=== PATIENT | male | born 1945 | race Caucasian/White ===

== ENCOUNTER 2020-11-12 07:21 | Outpatient (REF) | payer MEDICARE, SELFPAY ==
[2020-11-12 08:12] LABS: MANUAL DIFF FLAG NO
[2020-11-12 08:16] LABS: Basophils Percent Auto 0.4 % (0-2); Eosinophils Absolute Auto 0.2 X10*3/uL (0.0-0.4); Eosinophils Percent Auto 2.1 % (0-4); Hematocrit 49.8 % (42-52); Hemoglobin 17.3 g/dl (14.0-18.0); Imm Gran Abs Auto 0.04 X10*3/uL (0.00-0.03); Imm Gran Pct Auto 0.5 % (0.0-0.4); Lymphocytes Absolute Auto 1.4 X10*3/uL (1.2-4.9); Lymphocytes Percent Auto 18.3 % (20-40); Mean Corpuscular HGB Conc 34.7 g/dl (31.0-36.0); Mean Corpuscular Hemoglobin 31.1 pg (27.0-33.0); Mean Corpuscular Volume 89.6 fL (80-98); Mean Platelet Volume 9.3 fL (9.4-12.4); Monocytes Absolute Auto 0.5 X10*3/uL (0.1-1.2); Monocytes Percent Auto 6.6 % (2-11); Neutrophils Absolute Auto 5.6 X10*3/uL (2.0-8.3); Neutrophils Percent Auto 72.1 % (45-73); Platelet Count 405 X10*3/uL (160-400); Red Blood Count 5.56 X10*6/uL (4.60-5.80); Red Cell Distribution Width 12.9 % (11.0-16.0); White Blood Count 7.7 X10*3/uL (4.8-10.8)
[2020-11-12 08:31] LABS: Alanine Aminotransferase 57 U/L (0-40); Albumin Level 3.7 g/dL (3.5-5.0); Alkaline Phosphatase 51 U/L (39-117); Anion Gap 13 (12-20); Aspartate Amino Transferase 29 U/L (5-37); Bilirubin Total 1.7 mg/dL (0.0-1.0); Blood Urea Nitrogen 22 mg/dL (9-16); Calcium 9.2 mg/dL (8.4-10.2); Carbon Dioxide 29 mmol/L (22-29); Chloride 104 mmol/L (96-108); Cholesterol 168 mg/dL; Estimated Glomerular Filt Rate > 60; Glucose Fasting 102 mg/dL (60-99); HDL Cholesterol 46 mg/dL; LDL Cholesterol Calculated 107 mg/dl; Potassium 4.2 mmol/L (3.3-5.1); Sodium 142 mmol/L (135-145); Total Protein 5.6 g/dL (6.5-8.0); Triglycerides 76 mg/dL
== END 2020-11-12 07:22 | disposition home or self-care (01) ==
LOC: HO.LAB 07:21
PROVIDERS: PCP Internal Medicine; Visit Provider Internal Medicine
DX: Z00.00 Encounter for general adult medical examination without abnormal findings (principal); E11.9 Type 2 diabetes mellitus without complications
CPT/HCPCS: 36415; 80053; 80061; 85025

== ENCOUNTER → 2020-11-19 09:18 | Outpatient (REF) | payer MEDICARE, SELFPAY ==
--- NOTE | ~2020-11-19 | XR_ITS ---
EXAMINATION: XR CHEST CLINICAL INFORMATION: Essential primary hypertension COMPARISON: Previous chest x-ray March 2008 TECHNIQUE: 2 views of the chest were obtained. FINDINGS: The cardiac and mediastinal contours are normal. There is retrosternal scarring or subsegmental atelectasis seen on the lateral view. The lungs are otherwise clear. There is no pleural effusion or pneumothorax. There are old right posterior rib fractures. Bony structures are otherwise unremarkable. XR/XR chest 2V IMPRESSION: Retrosternal scarring or subsegmental atelectasis. Otherwise unremarkable exam.
--- NOTE | 2020-11-19 09:30 | ECG_ITS ---
Test Reason : SOB Blood Pressure : / mmHG Vent. Rate : 055 BPM Atrial Rate : 055 BPM P-R Int : 168 ms QRS Dur : 082 ms QT Int : 424 ms P-R-T Axes : 064 054 051 degrees QTc Int : 405 ms Sinus bradycardia with Premature atrial complexes in a pattern of bigeminy Otherwise normal ECG When compared with ECG of 26-AUG-2017 15:02, ST elevation now present in Inferior leads Referred By: Moo Alcazar Electronically Signed By:RANDY RUSH MD
== END ==
LOC: HO.CARD 09:18
PROVIDERS: PCP Internal Medicine; Visit Provider Internal Medicine
DX: Z13.9 Encounter for screening, unspecified (principal); I10 Essential (primary) hypertension
CPT/HCPCS: 71046; 93005

== ENCOUNTER 2021-10-26 08:34 | Outpatient (REF) | payer MEDICARE, SELFPAY ==
[2021-10-26 09:04] LABS: MANUAL DIFF FLAG NO
[2021-10-26 09:29] LABS: Basophils Percent Auto 0.5 % (0-2); Eosinophils Absolute Auto 0.1 X10*3/uL (0.0-0.4); Eosinophils Percent Auto 1.7 % (0-4); Hematocrit 47.9 % (42.0-52.0); Hemoglobin 16.8 g/dl (14.0-18.0); Imm Gran Abs Auto 0.01 X10*3/uL (0.00-0.03); Imm Gran Pct Auto 0.2 % (0.0-0.4); Lymphocytes Absolute Auto 1.4 X10*3/uL (1.2-4.9); Lymphocytes Percent Auto 21.7 % (20-40); Mean Corpuscular HGB Conc 35.1 g/dl (31.0-36.0); Mean Corpuscular Hemoglobin 31.6 pg (27.0-33.0); Mean Platelet Volume 9.2 fL (9.4-12.4); Monocytes Absolute Auto 0.5 X10*3/uL (0.1-1.2); Monocytes Percent Auto 7.3 % (2-11); Neutrophils Absolute Auto 4.4 x10*3/uL (2.0-8.3); Neutrophils Percent Auto 68.6 % (45-73); Platelet Count 336 X10*3/uL (160-400); Red Blood Count 5.32 X10*6/uL (4.60-5.80); Red Cell Distribution Width 13.1 % (11.0-16.0); White Blood Count 6.5 X10*3/uL (4.8-10.8)
[2021-10-26 09:53] LABS: Alanine Aminotransferase 45 U/L (0-40); Albumin Level 3.8 g/dL (3.5-5.0); Alkaline Phosphatase 47 U/L (39-117); Anion Gap 10 (12-20); Aspartate Amino Transferase 23 U/L (5-37); Bilirubin Total 1.9 mg/dL (0.0-1.0); Blood Urea Nitrogen 19 mg/dL (9-16); Calcium 9.5 mg/dL (8.4-10.2); Carbon Dioxide 27 mmol/L (22-29); Chloride 109 mmol/L (96-108); Cholesterol 150 mg/dL; Estimated Glomerular Filt Rate > 60; Glucose Fasting 99 mg/dL (60-99); HDL Cholesterol 41 mg/dL; LDL Cholesterol Calculated 96 mg/dl; Potassium 4.7 mmol/L (3.3-5.1); Sodium 141 mmol/L (135-145); Total Protein 5.7 g/dL (6.5-8.0); Triglycerides 65 mg/dL
[2021-10-26 10:13] LABS: Prostate Specific Antigen Scr 2.23 ng/mL (<0.05-4.0); Thyroid Stimulating Hormone 1.58 uIU/mL (0.32-4.0)
== END 2021-10-26 08:35 | disposition home or self-care (01) ==
LOC: HO.LAB 08:34
PROVIDERS: PCP Internal Medicine; Visit Provider Internal Medicine
DX: Z00.00 Encounter for general adult medical examination without abnormal findings (principal); Z12.5 Encounter for screening for malignant neoplasm of prostate
CPT/HCPCS: 36415; 80053; 80061; 84153; 84443; 85025

== ENCOUNTER 2022-08-02 08:56 | Outpatient (REF) | payer MEDICARE, SELFPAY ==
[2022-08-02 09:12] LABS: MANUAL DIFF FLAG NO
[2022-08-02 09:24] LABS: Basophils Percent Auto 0.5 % (0-2); Eosinophils Absolute Auto 0.2 X10*3/uL (0.0-0.4); Eosinophils Percent Auto 1.8 % (0-4); Hematocrit 50.1 % (42.0-52.0); Hemoglobin 17.3 g/dl (14.0-18.0); Imm Gran Abs Auto 0.03 X10*3/uL (0.00-0.03); Imm Gran Pct Auto 0.4 % (0.0-0.4); Lymphocytes Absolute Auto 1.5 X10*3/uL (1.2-4.9); Lymphocytes Percent Auto 18.1 % (20-40); Mean Corpuscular HGB Conc 34.5 g/dl (31.0-36.0); Mean Corpuscular Hemoglobin 31.2 pg (27.0-33.0); Mean Corpuscular Volume 90.4 fL (80.0-98.0); Mean Platelet Volume 8.9 fL (9.4-12.4); Monocytes Absolute Auto 0.6 X10*3/uL (0.1-1.2); Monocytes Percent Auto 7.1 % (2-11); Neutrophils Absolute Auto 5.9 x10*3/uL (2.0-8.3); Neutrophils Percent Auto 72.1 % (45-73); Platelet Count 374 X10*3/uL (160-400); Red Blood Count 5.54 X10*6/uL (4.60-5.80); Red Cell Distribution Width 12.7 % (11.0-16.0); White Blood Count 8.2 X10*3/uL (4.8-10.8)
[2022-08-02 09:51] LABS: Alanine Aminotransferase 43 U/L (0-40); Albumin Level 3.5 g/dL (3.5-5.0); Alkaline Phosphatase 50 U/L (39-117); Anion Gap 9 (12-20); Aspartate Amino Transferase 24 U/L (5-37); Bilirubin Total 1.5 mg/dL (0.0-1.0); Blood Urea Nitrogen 18 mg/dL (9-16); Calcium 8.7 mg/dL (8.4-10.2); Carbon Dioxide 30 mmol/L (22-29); Chloride 105 mmol/L (96-108); Cholesterol 152 mg/dL; Estimated Glomerular Filt Rate > 60; Glucose Fasting 100 mg/dL (60-99); HDL Cholesterol 40 mg/dL; LDL Cholesterol Calculated 99 mg/dl; Potassium 4.1 mmol/L (3.3-5.1); Sodium 140 mmol/L (135-145); Total Protein 5.3 g/dL (6.5-8.0); Triglycerides 67 mg/dL
== END 2022-08-02 08:57 | disposition home or self-care (01) ==
LOC: HO.LAB 08:56
PROVIDERS: Visit Provider Internal Medicine
DX: Z13.0 Encounter for screening for diseases of the blood and blood-forming organs and certain disorders involving the immune mechanism (principal); E78.5 Hyperlipidemia, unspecified; I10 Essential (primary) hypertension
CPT/HCPCS: 36415; 80053; 80061; 85025

== ENCOUNTER 2022-10-27 10:02 | Day surgery (SDC) | payer MEDICARE, SELFPAY ==
[2022-10-27 10:22] VITALS: BP 158/62; PULSE 61; RESP 18; TEMP 36.6; O2SAT 98; BMI 26.5
--- NOTE | 2022-10-27 11:46 | HO.ANESPROP2 ---
HPI - Anesthesia Eval Consult details Narrative: epigastric pain PMFSH Active Problems Active Problems: All Active Problems (Updated 01/11/22 @ 14:58 by Moo Alcazar MD) Gout (Acute) Physical exam (Acute) Hypertension (Acute) Past Medical History Medical History (Updated 01/11/22 @ 14:58 by Moo Alcazar MD) Hypertension Family History Family History Father Colon cancer Mother Stroke Family history of problems with anesthesia: No Surgical History Surgical History H/O rectal polypectomy History of cataract surgery History of removal of cyst History of Problems with Anesthesia: No Social History Social History Housing: House Alcohol intake: never Patient Tobacco Use Status: Former Tobacco user Quit Date: 2002 e-Cigarette/Vaping Use: Never Used Second Hand Smoke Exposure: No Use of substances other than those prescribed or required for medical reasons: No Are you DNR?: No Advance Directives: No Advance Directives Information Provided: Yes service: No Current occupational status: retired Cognitive needs: No Hearing needs: No Vision needs: Yes Meds Allergies Allergy/AdvReac Type Severity Reaction Status Date / Time No Known Allergies Allergy Verified 04/12/22 08:32 Home Medications Medication Instructions Recorded Confirmed Last Taken Type dorzolamide 22.3 mg-timolol 6.8 1 drp ophthalmic (eye) BID 08/19/20 08/09/22 Unknown History mg/mL eye drops Exam Exam Date and Time: October 27, 2022 1146 Height,Weight and Vital Signs: Height 5 ft 10 in Weight 83.915 kg Last Vital Signs Temp 97.9 F 10/27/22 10:22 Pulse 61 10/27/22 10:22 Resp 18 10/27/22 10:22 BP 158/62 H 10/27/22 10:22 Pulse Ox 98 10/27/22 10:22 O2 Del Method Room Air 10/27/22 10:22 Airway Mallampati Class: II TM Dist: >3cm Neck ROM: Full Heart: rr Lungs: cta Assessment and Plan Assessment Anesthesia Assessment: Anesthesia Plan Discussed and Chart Reviewed Final Anesthetic Review Family History of Problems with Anesthesia: No History of Problems with Anesthesia: No NPO: Yes ASA Class: II Final Preanesthetic Review: No Changes in Pt Med Stat, Meds/Allgs Chart Reviewed, Consent Obtained/Reviewed and Anes Risks/Benef Reviewed Patient Risk: Low Procedure Risk: Low Anesthetic Plan Anesthetic Plan: MAC: Disposition: Standard PACU
[2022-10-27 12:36] VITALS: BP 98/53; PULSE 67; RESP 16; TEMP 37.1; O2SAT 95
--- NOTE | 2022-10-27 12:39 | PM.OP ---
Brief Operative Note Date of Service: 10/27/22 Pre-op diagnosis: Abdominal pain, weight loss. Post-op diagnosis: other (Hiatal hernia, GERD) Procedure: EGD with biopsies Surgeon: Luciano Munroe Anesthesia: MAC Was an Still Operator Batch Or Continuous used for this Procedure?: No Estimated blood loss (mL): 2.0 Pathology: other (A. Descending duodenum B. Gastric antrum C. EG Junction at 38cm) Condition: stable Disposition: PACU
[2022-10-27 12:51] VITALS: BP 97/55; PULSE 68; RESP 17; O2SAT 96
[2022-10-27 13:06] VITALS: BP 117/69; PULSE 68; RESP 18; TEMP 37.1; O2SAT 97
--- NOTE | 2022-10-27 13:07 | P.BOP_ITS ---
Brief Operative Note Date of Service: 10/27/22 Pre-op diagnosis: Abdominal pain Post-op diagnosis: other (Hiatal hernia, GERD) Procedure: EGD with biopsies Surgeon: Luciano Munroe Anesthesia: MAC Was an Aoc Director Combat Plans Officer used for this Procedure?: No Estimated blood loss (mL): 2.0 Pathology: other (A. Descending duodenum B. Gastric antrum C. EG Junction at 38cm) Condition: stable Disposition: PACU
[2022-10-27 13:21] VITALS: BP 107/77; PULSE 61; RESP 16; TEMP 37.1; O2SAT 97
--- NOTE | 2022-10-27 23:45 | OP_ITS ---
DATE OF SERVICE: 10/27/2022 SURGEON: Luciano Munroe MD INDICATIONS: The patient presents for evaluation of upper abdominal discomfort, nausea, bloating, and weight loss. Full consent has been obtained from his for this, including risks of bleeding and perforation. PREOPERATIVE DIAGNOSIS: POSTOPERATIVE DIAGNOSIS: PROCEDURE PERFORMED: Esophagogastroduodenoscopy with biopsies. ESTIMATED BLOOD LOSS: COMPLICATIONS: ANESTHESIA: Monitored anesthesia care. ASSISTANTS: SPECIMENS: PREOPERATIVE DIAGNOSES: Upper abdominal discomfort, nausea, bloating, and weight loss. POSTOPERATIVE DIAGNOSES: Upper abdominal discomfort, nausea, bloating, weight loss, hiatal hernia, reflux, rule out celiac disease, rule out Helicobacter pylori. DESCRIPTION OF PROCEDURE: The patient was placed in the left lateral decubitus position. The Olympus video gastroscope was passed in the posterior oropharynx and upper esophagus under direct vision. The scope was passed slowly to the distal esophagus. The gastroesophageal junction appeared at 38 cm. There was some slight irregularity consistent with reflux but no evidence of esophagitis nor any definitive evidence of Piedra's mucosa. There was a small hiatal hernia. Scope was advanced to the pylorus and the duodenum was cannulated to descending portion. The duodenum including the bulb appeared normal without mass or ulceration. Biopsies were obtained from the second and third portions of the duodenum. The scope was then withdrawn back in the stomach. The gastric antrum and body appeared normal with good peristalsis. Scope was retroflexed visualizing the proximal stomach carefully, which appeared normal, without any sign of mass or ulceration. Scope was straightened. Biopsies were obtained from the gastric antrum. The scope was withdrawn back into the esophagus. Biopsies were obtained at the EG junction at 38 cm. Proximal to this, the esophageal mucosa appeared normal. Scope was withdrawn from the patient. He tolerated the procedure well and was returned to the recovery area in stable condition. IMPRESSION: 1. Hiatal hernia, gastroesophageal reflux. 2. Rule out celiac disease. 3. Rule out Helicobacter pylori. PLAN: The results of the biopsies will be checked. I do not think these findings would account for all these symptoms. He has been using Pepcid and I shall switch this to omeprazole 40 mg daily to see if that gives him any symptomatic relief. He is going to be having an ultrasound of the abdomen soon to rule out symptomatic gallstones. We shall make further plans based on all these results. He may need a CT scan of the abdomen at some point as well. MD ARIS Oconnell/ABEL / [phone] MTDD
== END 2022-10-27 14:08 | disposition home or self-care (01) ==
PROVIDERS: PCP Internal Medicine; Visit Provider Internal Medicine
PROC: 0DJ08ZZ Inspection of Upper Intestinal Tract, Via Natural or Artificial Opening Endoscopic (ICD-10-PCS; CPT 43235; principal; 2022-10-27 11:20)
DX: R10.13 Epigastric pain (principal); K29.80 Duodenitis without bleeding; R63.4 Abnormal weight loss; Z68.26 Body mass index [BMI] 26.0-26.9, adult; R11.0 Nausea; K21.9 Gastro-esophageal reflux disease without esophagitis; K44.9 Diaphragmatic hernia without obstruction or gangrene; I10 Essential (primary) hypertension; M10.9 Gout, unspecified; H40.9 Unspecified glaucoma; Z79.899 Other long term (current) drug therapy; Z87.891 Personal history of nicotine dependence
CPT/HCPCS: 43239; 88305; 88342

== ENCOUNTER 2022-11-12 08:00 | Outpatient (REF) | payer MEDICARE, SELFPAY ==
--- NOTE | ~2022-11-12 | US_ITS ---
EXAMINATION: US ABDOMEN COMPLETE CLINICAL INFORMATION: Epigastric pain. Weight loss. COMPARISON: CT abdomen and pelvis 07/12/2008. TECHNIQUE: Real-time imaging of the abdominal viscera. FINDINGS: PANCREAS: Portions of the pancreas are obscured by bowel gas limiting evaluation. Pancreatic duct is minimally dilated measuring 4 mm. ABDOMINAL AORTA: The proximal, mid, and distal segments are normal in caliber. INFERIOR VENA CAVA: Visualized portions are normal. LIVER: Liver is enlarged measuring 18.2 cm in span. The liver contour is normal. There is diffuse increased liver parenchymal echogenicity, consistent with infiltrative hepatocellular disease. Benign-appearing renal cysts measuring up to 1.7 cm. There is no intrahepatic biliary duct dilatation seen. GALLBLADDER: The gallbladder is physiologically distended. Cholelithiasis. Negative sonographic Saucedo sign.. No evidence of gallbladder wall thickening or pericholecystic fluid. COMMON BILE DUCT: Normal in caliber measuring 0.4 cm in diameter. RIGHT KIDNEY: Normal. No hydronephrosis. No renal calculi or focal parenchymal lesions. The kidney measures 11.0 cm in maximum dimension. LEFT KIDNEY: Normal. No hydronephrosis. No renal calculi or focal parenchymal lesions. The kidney measures 11.4 cm in maximum dimension. SPLEEN: Normal. The spleen measures 12.6 cm in maximum dimension. FREE FLUID: None. US/US abdomen complete IMPRESSION: 1. Portions of the pancreas are obscured by bowel gas limiting evaluation. Pancreatic duct is minimally dilated measuring 4 mm. Recommend further evaluation with contrast enhanced MR/MRCP. 2. Cholelithiasis without evidence of acute cholecystitis. 3. Hepatomegaly. Increased hepatic echogenicity which can be seen in the setting of underlying liver disease.
== END 2022-11-12 08:01 | disposition home or self-care (01) ==
LOC: HO.US 08:00
PROVIDERS: PCP Internal Medicine; Visit Provider Internal Medicine
DX: R10.13 Epigastric pain (principal); R63.4 Abnormal weight loss
CPT/HCPCS: 76700

== ENCOUNTER 2022-12-16 08:16 | Outpatient (REF) | payer MEDICARE, SELFPAY ==
[2022-12-16 10:04] LABS: Alanine Aminotransferase 61 U/L (0-40); Albumin Level 3.6 g/dL (3.5-5.0); Alkaline Phosphatase 54 U/L (39-117); Amylase 66 U/L (28-100); Aspartate Amino Transferase 33 U/L (5-37); Bilirubin Direct 0.5 mg/dL (0.0-0.5); Bilirubin Total 1.9 mg/dL (0.0-1.0); Blood Urea Nitrogen 25 mg/dL (9-16); Estimated Glomerular Filt Rate > 60; Lipase 44 U/L (8-78); Total Protein 5.5 g/dL (6.5-8.0)
[2022-12-18 12:39] LABS: Carbohydrate Antigen 19-9 13 U/mL (<34)
== END 2022-12-16 08:17 | disposition home or self-care (01) ==
LOC: HO.LAB 08:16
PROVIDERS: PCP Internal Medicine; Visit Provider Internal Medicine
DX: Q45.3 Other congenital malformations of pancreas and pancreatic duct (principal); K80.20 Calculus of gallbladder without cholecystitis without obstruction; R93.5 Abnormal findings on diagnostic imaging of other abdominal regions, including retroperitoneum
CPT/HCPCS: 36415; 80076; 82150; 82565; 83690; 84520; 86301

== ENCOUNTER 2022-12-22 08:09 | Outpatient (REF) | payer MEDICARE, SELFPAY ==
--- NOTE | ~2022-12-22 | MR_ITS ---
EXAMINATION: MR ABDOMEN WITHOUT AND WITH CONTRAST CLINICAL INFORMATION: Abnormal pancreatic duct. Gallstones. COMPARISON: None available. TECHNIQUE: MR abdomen was performed without and with use of 9 mL intravenous Gadavist gadolinium contrast. Postcontrast images are performed in multiphase dynamic sequences. Imaging was performed in 3 planes. MRCP sequences were also performed. FINDINGS: LUNG BASES: The visualized lung bases are unremarkable. LIVER, GALLBLADDER, AND BILIARY TREE: There are 3 liver cysts, largest measuring 1 cm. No other focal liver lesion. There is fatty infiltration of the liver. The liver is normal in contour. There is a gallstone in the gallbladder. The gallbladder is otherwise normal. Intrahepatic extrahepatic bile ducts are normal in caliber. The common bile duct measures 3 mm. PANCREAS: There is a 5 mm cyst in the head of the pancreas axial image 15 series 5. This abuts the main pancreatic duct. This likely accounts for finding seen on ultrasound. There is a probable small 2 to 3 mm cyst adjacent to the head of the pancreas axial image 13 series 5 as well. Cysts appear to represent simple cysts and demonstrate no wall thickening solid component or evidence of enhancement. There is an 8 mm cyst in the uncinate process of the head of the pancreas axial image 22 series 9. This may communicate with the pancreatic duct. This is slightly irregular in shape. This may be multiloculated with septal enhancement. No solid component seen. Pancreas is otherwise normal. The main pancreatic duct does not appear dilated. SPLEEN: Normal. ADRENAL GLANDS: Normal. KIDNEYS AND URETERS: The kidneys are normal in size, shape, and enhance symmetrically. No hydronephrosis. No perinephric stranding. Small bilateral peripelvic cysts. No imaging follow-up recommended. GASTROINTESTINAL TRACT: Diverticulosis of the colon. Question wall thickening of the proximal small bowel in the left upper quadrant. No bowel obstruction. No ascites or fluid collection. ABDOMINAL WALL: No significant hernia is appreciated. LYMPH NODES: No lymphadenopathy. VASCULAR: Unremarkable. OSSEOUS STRUCTURES: Marrow signal normal. Degenerative disc disease MR/MR abdomen wo/w con IMPRESSION: Several cysts in the pancreas. Largest cyst measures 8 mm in the uncinate process of the head of the pancreas, appears complex and may communicate with the main pancreatic duct. The remainder of the cysts represent simple cysts. Cystic pancreatic neoplasm cannot be excluded including sidebranch IPMN. Follow-up MR of the pancreas with MRCP in one year recommended. Fatty liver. Multiple liver cysts. Diverticulosis of the colon. Question mild wall thickening of the proximal small bowel in the left upper quadrant.
== END 2022-12-22 08:10 | disposition home or self-care (01) ==
LOC: HO.MRI 08:09
PROVIDERS: PCP Internal Medicine; Visit Provider Internal Medicine
DX: Q45.3 Other congenital malformations of pancreas and pancreatic duct (principal); K80.20 Calculus of gallbladder without cholecystitis without obstruction; R93.5 Abnormal findings on diagnostic imaging of other abdominal regions, including retroperitoneum
CPT/HCPCS: 74183; A9585

== ENCOUNTER → 2022-12-29 09:42 | Outpatient (BNVA) | payer MEDICARE, SELFPAY | PROVIDERS: PCP Internal Medicine; Referring Provider Internal Medicine; Visit Provider Surgery | DX: K80.20 Calculus of gallbladder without cholecystitis without obstruction (principal) | CPT/HCPCS: 99202 ==

== ENCOUNTER 2023-01-27 09:29 | Day surgery (SDC) | payer MEDICARE, SELFPAY ==
[2023-01-24 09:36] VITALS: BMI 27.2
--- NOTE | 2023-01-26 14:30 | MHC.SHP ---
Pre-Procedural Eval Section A Date of Service: 01/26/23 The patient is an INPATIENT: No Changes since office visit: No Cold of Flu in the past 2 weeks, No New Medical Problems, No Changes in Medication and No Patient answered all questions The History & Physical has been completed within 30 days and I have reviewed it.: Yes Section B Chief Complaint: Calculus of gallbladder without cholecystitis with Allergies: Allergies Allergy/AdvReac Type Severity Reaction Status Date / Time No Known Allergies Allergy Verified 12/29/22 09:51 Plan I have reviewed the history and physical and performed a pertinent physical examination on my patient. No changes have occurred unless specified. Time Spent With Patient Time: Total time managing care of this patient today ____ minutes.
[2023-01-27] VITALS (15 sets, daily range): BP systolic 122–163; BP diastolic 67–88; PULSE 64–78; RESP 10–17; TEMP 36.4–37.1; O2SAT 92–98
--- NOTE | 2023-01-27 12:21 | HO.ANESPROP2 ---
HPI - Anesthesia Eval Consult details Narrative: 77 yo M presenting for lap [place]. PMFSH Active Problems Active Problems: All Active Problems (Updated 01/27/23 @ 10:16 by Zehra Mc RN) Physical exam (Acute) Gout (Acute) Chronic GERD (Acute) Gallstones (Acute) Hypertension (Acute) Past Medical History Medical History Arrhythmia Hypertension Family History Family History Father Colon cancer Mother Stroke Family history of problems with anesthesia: No Surgical History Surgical History H/O rectal polypectomy History of cataract surgery History of esophagogastroduodenoscopy (EGD) History of removal of cyst History of Problems with Anesthesia: No Social History Social History Housing: House Alcohol intake: never Patient Tobacco Use Status: Former Tobacco user Quit Date: 2002 e-Cigarette/Vaping Use: Never Used Second Hand Smoke Exposure: No Use of substances other than those prescribed or required for medical reasons: No Are you DNR?: No Advance Directives: No Advance Directives Information Provided: Yes Recently lost weight without trying: Yes How much weight loss: 14-23 pounds Nutrition Risks: No Nutritional Risk service: No Current occupational status: retired Cognitive needs: No Hearing needs: No Vision needs: Yes Meds Allergies Allergy/AdvReac Type Severity Reaction Status Date / Time No Known Allergies Allergy Verified 12/29/22 09:51 Active Medications: Current Medications Lactated Ringer's (Lr) 1,000 mls @ 80 mls/hr IVCONT .[id number] [facility] Last Admin: 01/27/23 10:50 Dose: 80 mls/hr Home Medications Medication Instructions Recorded Confirmed Last Taken Type dorzolamide 22.3 mg-timolol 6.8 1 drp ophthalmic (eye) BID 08/19/20 01/24/23 Unknown History mg/mL eye drops omeprazole 40 mg capsule,delayed 40 mg PO QAM 12/14/22 01/24/23 01/27/23 History release Exam Exam Date and Time: January 27, 2023 1221 Height,Weight and Vital Signs: Height 5 ft 11 in Weight 88.451 kg Last Vital Signs Temp 98.7 F 01/27/23 10:37 Pulse 64 01/27/23 10:37 Resp 16 01/27/23 10:37 BP 135/81 01/27/23 10:37 Pulse Ox 97 01/27/23 10:37 O2 Del Method Room Air 01/27/23 10:37 Airway Mallampati Class: II TM Dist: <=3cm Neck ROM: Limited Loose/Missing/Broken Teeth: No Heart: S1S2 Lungs: CTAB Assessment and Plan Assessment Anesthesia Assessment: Anesthesia Plan Discussed and Chart Reviewed Final Anesthetic Review Family History of Problems with Anesthesia: No History of Problems with Anesthesia: No NPO: Yes ASA Class: II Final Preanesthetic Review: No Changes in Pt Med Stat, Meds/Allgs Chart Reviewed, Consent Obtained/Reviewed and Anes Risks/Benef Reviewed Patient Risk: Low Procedure Risk: Low Anesthetic Plan Anesthetic Plan: GA and Agree w/ Assess. and Plan Disposition: Standard PACU
--- NOTE | 2023-01-27 13:41 | W.PM.OPN ---
Operative Note Operative Note Date of Service: 01/27/23 Narrative: Preoperative diagnosis: [] Biliary colic Postop diagnosis: [] Same Procedure [] laparoscopic cholecystectomy, aspiration of chylous ascites sent for culture and cytology Surgeon: [] Diogenes Breaker Boss: [] HAYLEY Cuellar Type of Anesthesia: [] General Indication for surgery: [] Gallbladder with omental adhesions to it. Intrahepatic gallbladder. Chylous ascites. No evidence of peritoneal studding or tumor implants. Findings: [] Patient brought to the operating room, placed on operative table in supine position, after adequate level of general anesthesia was induced, the patient's abdomen was prepped and draped in usual sterile fashion. Using a supraumbilical curvilinear incision, Arriaza technique was used to insufflate the abdominal cavity to 15 mm of CO2. Upper midline and right subcostal ports were placed under direct laparoscopic view, the patient placed in reverse Trendelenburg position, tilted to the left. Biliary findings were as noted above. Significant amount of chylous ascites was found throughout the abdominal cavity. This was aspirated and a jewelry sales representative sample to pathology for cytology and cultures. Graspers were used to grab the gallbladder and it was retracted superiorly and laterally. Soft omental adhesions were felt the gallbladder where it hilum was approached. Common bile duct was identified and preserved throughout the procedure. Cystic artery and cystic duct were each identified, circumferentially skeletonized, each traced directly to the gallbladder and critical view obtained. Each was clipped proximally x2, distally x1, and transected. Gallbladder which was moderately intrahepatic was then cauterized from the gallbladder fossa using electro Bovie. Small posterior descending artery the gallbladder fossa Was clipped as well. Specimen was placed in Endo-Catch bag, a retrieved through the umbilical port. Abdominal cavity was very copiously irrigated, secured hemostasis. All ports were removed under direct laparoscopic view. Wounds were closed in the following manner; umbilical wound has fascia reapproximated using interrupted 0 Vicryl sutures. Skin wounds were closed using subcuticular 4-0 Vicryl sutures followed by Steri-Strips and sterile dressings. Wounds were infiltrated 0.5% Marcaine with epinephrine a completion. Sponge, needle, and instrument counts were reported to be correct. Patient tolerated the procedure well and emerged anesthesia stable condition. EBL minimal
== END 2023-01-27 16:16 | disposition home or self-care (01) ==
PROVIDERS: PCP Internal Medicine; Visit Provider Surgery
PROC: 0FT44ZZ Resection of Gallbladder, Percutaneous Endoscopic Approach (ICD-10-PCS; CPT 47562; principal; 2023-01-27 12:10)
DX: K80.10 Calculus of gallbladder with chronic cholecystitis without obstruction (principal); I89.8 Other specified noninfective disorders of lymphatic vessels and lymph nodes; I10 Essential (primary) hypertension
CPT/HCPCS: 47562; 87070; 87073; 87205; 88112; 88304; 88305; J0690; J1100; J2370; J2371; J2405; J2550; J3010

== ENCOUNTER 2023-02-04 10:43 | Outpatient (AMB) | payer MEDICARE, SELFPAY ==
[2023-02-04 10:53] VITALS: BP 132/78; PULSE 80
--- NOTE | 2023-02-04 10:53 | MHC.OFFVIS ---
Intake Vital Signs 02/04/23 10:53 BP 132/78 Blood Pressure Location Lt brachial Position Sitting Pulse 80 Intake Visit Reasons: S/P lap [place] Intake Note: Patient here s/p lap [place]. Patient reports incisions healing well. Denies pain, bleeding or itch. Stopped rx pain meds 2d ago. Information Assurance Required: No Accompanied by: Self / Same As Patient Allergies No Known Allergies Allergy (Verified 02/04/23 10:55) HPI HPI Comments History of Present Illness Details Patient presents for follow-up. Aside from incisional discomfort is doing well. He is tolerating a diet. He is having normal bowel habits. He had early constipation which has since resolved PFSH Medical History Arrhythmia Hypertension Surgical History H/O rectal polypectomy History of cataract surgery History of esophagogastroduodenoscopy (EGD) History of laparoscopic cholecystectomy (01/27/23) History of removal of cyst Family History Father Colon cancer Mother Stroke Social History Housing: House Alcohol intake: never Patient Tobacco Use Status: Former Tobacco user Quit Date: 2002 e-Cigarette/Vaping Use: Never Used Second Hand Smoke Exposure: No service: No Current occupational status: retired Cognitive needs: No Hearing needs: No Vision needs: Yes Physical Exam Vital Signs: Last Vital Signs Pulse 80 02/04/23 10:53 BP 132/78 02/04/23 10:53 Eyes Other: Anicteric GI Other: Abdomen soft. All wounds clean dry and intact. Assessment & Plan Assessment & Plan (1) Gallstones: Code(s): K80.20 - Calculus of gallbladder without cholecystitis without obstruction Plan Patient has been given local instructions, and will follow-up p.r.n. Coding Level of Care Code Global (56781) Diagnoses Gallstones K80.20
== END 2023-02-04 11:00 | disposition home or self-care (01) ==
PROVIDERS: PCP Internal Medicine; Visit Provider Surgery
DX: K80.20 Calculus of gallbladder without cholecystitis without obstruction (principal)
CPT/HCPCS: 99024

== ENCOUNTER → 2023-02-04 10:43 | Outpatient (BNVA) | payer MEDICARE, SELFPAY | PROVIDERS: PCP Internal Medicine; Visit Provider Surgery ==

== ENCOUNTER 2023-04-19 09:42 | Outpatient (AMB) | payer MEDICARE, SELFPAY ==
--- NOTE | 2023-04-19 09:45 | MHC.PC.OV ---
Vital Signs 04/19/23 09:46 Height 5 ft 11 in Weight 189 lb BMI 26.4 BP 110/58 L Blood Pressure Location Lt brachial Position Sitting Pulse 67 Pulse Source Pulse Oximeter Pulse Oximetry (%) 98 Oxygen Delivery Method Room Air Intake Visit Reasons: 4 month f/u Director Commercial Sales: Not Required per policy Accompanied by: Self / Same As Patient Allergies No Known Allergies Allergy (Verified 04/19/23 09:46) Medication List - Last Reconciled 04/19/23 by Moo Alcazar MD amlodipine 10 mg PO DAILY dorzolamide-timolol 22.3-6.8 mg/mL 1 drp ophthalmic (eye) BID hydrochlorothiazide 25 mg PO DAILY naproxen (Naprosyn) 500 mg PO BID PRN omeprazole 40 mg PO QAM Tobacco use date assessed: 08/09/22 Fall risk assessment: No Falls in past year Last assessed Fall Risk: 04/19/23 Dental Screening Dental Screen Date: 04/19/23 Did you have a dental visit in the last 12 months?: Yes Did you have a dental problem in the last 6 months where you did not have access to dental care?: No Was dental information given to patient?: Patient has dentist HPI 4 month f/u HPI Details HTN on Rx; has nocturia for a few months with urgency PFSH Medical History Arrhythmia Hypertension Surgical History History of laparoscopic cholecystectomy (01/27/23) History of esophagogastroduodenoscopy (EGD) History of cataract surgery H/O rectal polypectomy History of removal of cyst Family History Father Colon cancer Mother Stroke Social History Housing: House Alcohol intake: never Patient Tobacco Use Status: Former Tobacco user Quit Date: 2002 e-Cigarette/Vaping Use: Never Used Second Hand Smoke Exposure: No service: No Current occupational status: retired Cognitive needs: No Hearing needs: No Vision needs: Yes Questionnaire PHQ-9 Over the last 2 weeks, how often have you been bothered by any of the following problems? 1. Little interest or pleasure in doing things: not at all 2. Feeling down, depressed, or hopeless: not at all 3. Trouble falling or staying asleep, or sleeping too much: not at all 4. Feeling tired or having little energy: not at all 5. Poor appetite or overeating: not at all 6. Feeling bad about yourself - or that you are a failure or have let yourself or your family down: not at all 7. Trouble concentrating on things, such as reading the newspaper or watching television: not at all 8. Moving or speaking so slowly that other people could have noticed. Or the opposite - being so fidgety or restless that you have been moving around a lot more than usual: not at all 9. Thoughts that you would be better off or of hurting yourself in some way: not at all Total score: 0 Depression Screening Interpretation: Negative 85085 - PHQ-9 Billing: Yes Source: Developed by Drs. Luciano Alfred, Maya Henderson, Jesse Grullon and colleagues, with an educational emile from [employer]. Thrive Questionnaire Date Thrive assessed: 08/09/22 AUDIT C Alcohol Use Questionnaire (AUDIT-C) 1. How often do you have a drink containing alcohol?: Never Total Score: 0 Score Reviewed/Action Taken: Yes LAILA-7 AMB Questionnaire LAILA-7 Date LAILA - 7 assessed: 08/09/22 Source: Developed by Drs. Luciano Alfred, Jesse Block and colleagues, with an educational emile from [employer]. Review of Systems Const Denies chills, Denies headache(s) and Denies weight loss ENT Denies headache(s) Card Denies chest pain, Denies syncope, Denies irregular heart rhythm and Denies dyspnea Resp Denies chest congestion, Denies cough and Denies dyspnea GI Denies abdominal pain, Denies change in stool character, Denies nausea and Denies vomiting Musc Denies deformity and Denies joint swelling Neuro Denies syncope and Denies headache(s) Physical exam (Primary Care) Vital Signs: Last Vital Signs Pulse 67 04/19/23 09:46 BP 110/58 L 04/19/23 09:46 Pulse Ox 98 04/19/23 09:46 Oxygen Delivery Method Room Air 04/19/23 09:46 BMI result Body Mass Index 26.4 Tobacco/Smoking Status: Tobacco use Status Tobacco use date assessed 08/09/22 04/19/23 09:46 Patient Tobacco Use Status Former Tobacco user 04/19/23 09:46 e-Cigarette/Vaping Use Never Used 04/19/23 09:46 PHQ-9: PHQ-9 Score PHQ-9: Total score 0 04/19/23 09:52 Depression Screening Interpretation: Negative Thrive Assessment: Date of Thrive Assessment Date Thrive assessed 08/09/22 04/19/23 09:46 Const General: cooperative, comfortable, no acute distress and alert Neck Neck: Yes no lymphadenopathy Thyroid: Thyroid normal Resp Effort & Inspection: normal respiratory effort Auscultation: clear to auscultation bilaterally Percussion: percussion normal Cardio Jugular venous distension: no JVD Palpation: normal PMI Rate: regular rate Rhythm: regular rhythm Heart sounds: S1 normal heart sound present and S2 normal heart sound present GI Inspection: Yes normal to inspection Palpation (GI): No hepatosplenomegaly present Skin General skin exam: no rashes or lesions noted Extrem General: Yes no clubbing, cyanosis or edema Assessment and Plan Assessment & Plan (1) Hypertension: Code(s): I10 - Essential (primary) hypertension Plan: stable; same rx (2) Urinary frequency: Code(s): R35.0 - Frequency of micturition Plan: ref urol Orders: Orders Prostate Specific Antigen Scr Today Z00.00 - Encounter for general adult medical examination without abnormal findings Referrals Urology Referral R35.0 - Frequency of micturition Coding Level of Care Code Est Pt Level 3 (22825) Diagnoses Hypertension I10 Urinary frequency R35.0
[2023-04-19 09:46] VITALS: BP 110/58; PULSE 67; O2SAT 98; BMI 26.4
== END 2023-04-19 10:15 | disposition home or self-care (01) ==
PROVIDERS: Visit Provider Internal Medicine
DX: I10 Essential (primary) hypertension (principal); R35.0 Frequency of micturition
CPT/HCPCS: 99213

== ENCOUNTER 2023-06-01 08:49 | Outpatient (AMB) | payer MEDICARE, SELFPAY ==
--- NOTE | 2023-06-01 08:56 | A.OFFVIS_ITS ---
Intake Intake Visit Reasons: Frequency of micturition Intake Note: New Patient presents for initial visit for urinary frequency Urology Medications: none Blood Thinner: none PVR: 39ml's Wired Sweatband Cutter Required: No Accompanied by: Self / Same As Patient Allergies No Known Allergies Allergy (Verified 06/01/23 09:34) Medication List - Last Reconciled 06/01/23 by SAMEERA Blankenship amlodipine 10 mg PO DAILY dorzolamide-timolol 22.3-6.8 mg/mL 1 drp ophthalmic (eye) BID hydrochlorothiazide 25 mg PO DAILY omeprazole 40 mg PO QAM HPI HPI Comments History of Present Illness Details Toby is a very pleasant 77-year-old male patient of Dr. Alcazar. He has a past medical history of arrhythmia, GERD, peripheral vascular disease, and hypertension. He presents to the office today as a new patient for ongoing lower urinary tract symptoms. In discussion with the patient today he notes progressive issues with nocturia, weak stream, and at times urinary frequency. In review of patient's chart it appears patient has undergone recent abdominal ultrasound which noted bilateral kidneys with no calculi, lesions, and or hydronephrosis. When asked patient denies incontinence, hematuria, dysuria, foul smelling urine, flank pain, fever, and or chills. Discussed obtaining bladder ultrasound and PSA for further assessment evaluation. Discussed limiting fluids 2-3 hours prior to bed to assist with decreasing episodes of nocturia. In office urinalysis results reviewed with the patient today. PVR 39 mL. Discussed at length potential causes for lower urinary tract symptoms patient is experiencing. Discussed trial of low-dose terazosin or tamsulosin. Patient otherwise denies any issues or concerns at this time. BHARATHI offered however deferred. FORMERLY [facility], [facility] Medical History Arrhythmia Hypertension Surgical History History of laparoscopic cholecystectomy (01/27/23) History of esophagogastroduodenoscopy (EGD) History of cataract surgery H/O rectal polypectomy History of removal of cyst Family History Father Colon cancer Mother Stroke Social History Housing: House Alcohol intake: never Patient Tobacco Use Status: Former Tobacco user Quit Date: 2002 e-Cigarette/Vaping Use: Never Used Second Hand Smoke Exposure: No service: No Current occupational status: retired Cognitive needs: No Hearing needs: No Vision needs: Yes Review of Systems Const Reports as per [facility] Eyes Reports no additional complaints ENT Reports no additional complaints Card Reports as per HPI Resp Reports no additional complaints GI Reports as per HPI Reports as per HPI Musc Reports as per HPI Neuro Reports no additional complaints Psych Reports no additional complaints Endo Reports no additional complaints Physical Exam Const General: cooperative, healthy appearing, comfortable, no acute distress, well developed, alert and awake Orientation/consciousness: patient oriented x3 Limitations: no limitations HEENT Head: Yes normal to inspection, Yes normocephalic and Yes atraumatic Ears: hearing grossly normal bilaterally Eyes General: appearance normal, both eyes and all related structures Neck Neck: Yes normal visual inspection and Yes trachea midline Chest Chest palpation & inspection: normal inspection of the chest Resp Effort & Inspection: normal respiratory effort and able to speak in complete sentences Cardio Rate: regular rate GI Inspection: Yes normal to inspection General: Yes no CVA tenderness Back/Spine/Pelvis Back: no CVA tenderness Skin General skin exam: no rashes or lesions noted Neuro General: patient oriented x3 Extrem General: Yes normal to inspection Psych Appearance: grossly normal and well kempt Mental Status: mental status grossly normal Speech and movement: Normal speech and movement present and Clear speech present Affect: normal affect Attitude: cooperative Thought process: Normal thought process present Thought content: Normal thought content present Insight: Fair insight present (Psych) Judgement: Fair judgement present (Psych) Office Procedures Post Void Residual Post Residual Void Post Void Residual (PVR): 39 [id number]-[id number] Void Residual by ultrasound Results AMB Urinalysis, Automated UA Leukoctes 0 Inge/uL Last Edit by Bita Cheung on 06/01/23 09:25 UA Nitrite Negative Last Edit by Bita Cheung on 06/01/23 09:25 UA Urobilinogen 0.2 mg/dL Last Edit by Bita Cheung on 06/01/23 09:25 UA Protein 0 mg/dL Last Edit by Bita Cheung on 06/01/23 09:25 UA pH 6.0 Last Edit by Bita Cheung on 06/01/23 09:25 UA Blood 0 Ortega/uL Last Edit by Antnathanshanae Teranjessica on 06/01/23 09:25 UA Specific [place] 1.020 Last Edit by Bita Teranjessica on 06/01/23 09:25 UA Ketone Negative Last Edit by Antyosvany Paruljessica on 06/01/23 09:25 UA Bilirubin 0 mg/dL Last Edit by Antyosvany Paruljessica on 06/01/23 09:25 UA Glucose 0 mg/dL Last Edit by Antyosvany Paruljessica on 06/01/23 09:25 Results Reviewed Results Reviewed: Laboratory Last Values Urine pH (Auto) 6.0 06/01/23 09:12 Specific [place] (Auto) 1.020 06/01/23 09:12 Urine Protein (Auto) 0 mg/dL 06/01/23 09:12 Glucose (UA)(Auto) 0 mg/dL 06/01/23 09:12 Urine Ketones (Auto) Negative 06/01/23 09:12 Urine Blood (Auto) 0 Ortega/uL 06/01/23 09:12 Urine Nitrite (Auto) Negative 06/01/23 09:12 Urine Bilirubin (Auto) 0 mg/dL 06/01/23 09:12 Urine Urobilinogen (Auto) 0.2 mg/dL 06/01/23 09:12 Leukocyte Esterase (Auto) 0 Inge/uL 06/01/23 09:12 Assessment & Plan Assessment & Plan (1) Lower urinary tract symptoms: Code(s): R39.9 - Unspecified symptoms and signs involving the genitourinary system (2) Nocturia: Code(s): R35.1 - Nocturia (3) Urinary frequency: Code(s): R35.0 - Frequency of micturition Plan In office urinalysis results reviewed with the patient today; as noted above. PVR 39 mL. Discussed at length potential causes for lower urinary tract symptoms patient has been experiencing. Discussed bladder triggers/irritants. Discussed limiting fluids 2-3 hours prior to bed to assist with decreasing episodes of nocturia. Will obtain PSA for further assess evaluation. Will obtain bladder ultrasound for further assessment evaluation; patient recently had abdominal ultrasound October of this year noting bilateral kidneys within normal limits. Discuss trial of 0.4 mg of Flomax daily verses low-dose terazosin daily; patient would like to think about this. Follow-up in 1-2 months with imaging and labs to be completed prior; or sooner with any issues, concerns, and or questions. Orders: Orders AMB Urinalysis Automated Today Z13.9 - Encounter for screening, unspecified AMB Post Void Residual by ultrasound Today R35.0 - Frequency of micturition US bladder Today R39.12 - Poor urinary stream Prostate Specific Antigen Today R35.0 - Frequency of micturition, R35.1 - Nocturia, R39.9 - Unspecified symptoms and signs involving the genitourinary system Patient Instructions: The patient had an opportunity to ask questions regarding the treatment plan. All questions were answered. Physical exam, labs, and imaging were discussed and reviewed in detail. As well as risks, benefits, and discussion of treatment choices. No major barriers to understanding were identified. The patient expressed understanding and agreement with the above treatment plan. The patient was made aware they should contact our office by phone for worsening of their current condition, the appearance of new symptoms, or with any questions or concerns. Compliance is encouraged with any medications and follow up testing that is ordered. It is a privilege to be allowed the opportunity to participate in? your urological care.? Again, if you have any questions or concerns If you have any questions or concerns please do not hesitate to contact me. The office is [phone]. This note is constructed using voice recognition software. While every effort has been made to ensure accuracy resaw machine operator errors may have been included. Yours sincerely, SAMEERA Blankenship Coding Level of Care Code New Pt Level 3 (56653) Diagnoses Lower urinary tract symptoms R39.9 Nocturia R35.1 Urinary frequency R35.0 CPT Codes Post Residual Void - PVR CPT Code: 64441-Svzy Void Residual by ultrasound ([id number])
== END 2023-06-01 09:35 | disposition home or self-care (01) ==
PROVIDERS: PCP Internal Medicine; Visit Provider Nurse Practitioner Family
DX: R39.9 Unspecified symptoms and signs involving the genitourinary system (principal); R35.1 Nocturia; R35.0 Frequency of micturition; Z13.9 Encounter for screening, unspecified
CPT/HCPCS: 99203

== ENCOUNTER → 2023-06-01 08:49 | Outpatient (BNVA) | payer MEDICARE, SELFPAY | PROVIDERS: PCP Internal Medicine; Visit Provider Nurse Practitioner Family | DX: R39.9 Unspecified symptoms and signs involving the genitourinary system (principal); R35.1 Nocturia; R35.0 Frequency of micturition | CPT/HCPCS: 51798; 81003; 99202 ==

== ENCOUNTER 2023-06-28 12:13 | Outpatient (REF) | payer MEDICARE, SELFPAY ==
--- NOTE | ~2023-06-28 | US_ITS ---
EXAMINATION: US PELVIS LIMITED (BLADDER) CLINICAL INFORMATION: Poor urinary stream. COMPARISON: MR abdomen without and with contrast 12/22/2022. Ultrasound abdomen complete 11/12/2022. TECHNIQUE: Real-time imaging of the bladder. FINDINGS: BLADDER: Well distended. Bilateral ureteral jets are demonstrated. Prevoid bladder volume is 410.3 mL. Postvoid bladder volume is 78.2 mL. The prostate volume is 33.6 mL. US/US bladder IMPRESSION: Moderate postvoid residual bladder volume.
== END 2023-06-28 12:14 | disposition home or self-care (01) ==
LOC: HO.US 12:13
PROVIDERS: PCP Internal Medicine; Visit Provider Nurse Practitioner Family
DX: R39.12 Poor urinary stream (principal)
CPT/HCPCS: 76857

== ENCOUNTER 2023-07-05 08:12 | Outpatient (REF) | payer MEDICARE, SELFPAY | END 2023-07-05 08:13 | disposition home or self-care (01) | LOC: HO.LAB 08:12 | PROVIDERS: PCP Internal Medicine; Visit Provider Nurse Practitioner Family | DX: R39.9 Unspecified symptoms and signs involving the genitourinary system (principal); R35.1 Nocturia; R35.0 Frequency of micturition; Z12.5 Encounter for screening for malignant neoplasm of prostate | CPT/HCPCS: 36415; 84153 ==

== ENCOUNTER 2023-07-13 09:33 | Outpatient (AMB) | payer MEDICARE, SELFPAY ==
--- NOTE | 2023-07-13 09:56 | MHC.OFFVIS ---
Intake Intake Visit Reasons: 6w/US/PSA(set) Intake Note: Patient presents for follow up visit for urinary frequency/ultrasound/labs (psa 1.70) (imaging 06/28/23) Urology Medications: none Blood Thinner: none PVR: 0ml's Concrete Analyst Required: No Accompanied by: Self / Same As Patient Allergies No Known Allergies Allergy (Verified 07/14/23 20:45) Medication List - Last Reconciled 07/14/23 by SAMEERA Blankenship amlodipine 10 mg PO DAILY dorzolamide-timolol 22.3-6.8 mg/mL 1 drp ophthalmic (eye) BID hydrochlorothiazide 25 mg PO DAILY omeprazole 40 mg PO QAM HPI HPI Comments History of Present Illness Details Toby is a very pleasant 77-year-old male patient of Dr. Alcazar. He has a past medical history of arrhythmia, GERD, peripheral vascular disease, and hypertension. He presents to the office today for a follow up. Of note, patient was seen approximately 1 month ago for ongoing lower urinary tract symptoms at which time a bladder ultrasound was ordered as well as a PSA for further assessment evaluation. These results reviewed with the patient today. The bladder is well distended. Bilateral ureteral jets are demonstrated. Pre void bladder volume is approximately 410 mL. Postvoid bladder volume is approximately 80 mL. The prostate volume is approximately 34 mL. PSA 07/16--1.7. In discussion with the patient today he notes progressive issues with nocturia, weak stream, and urinary frequency. However he does not feel symptoms are bothersome enough at this time for further intervention with medication and or cystoscopy for further assessment evaluation. When asked he denies incontinence, hematuria, dysuria, foul smelling urine, flank pain, fever, and or chills. Discussed limiting fluids 2-3 hours prior to bed to assist with decreasing episodes of nocturia as well as attempting to double void to assist with incomplete bladder emptying. In office urinalysis results reviewed with the patient today. PVR 0 mL. Discussed at length potential causes for lower urinary tract symptoms patient is experiencing. Discussed trial of low-dose terazosin or tamsulosin. Patient otherwise denies any issues or concerns at this time. BHARATHI offered however deferred. FOR[facility]LY [facility] Medical History Arrhythmia Hypertension Surgical History History of laparoscopic cholecystectomy (01/27/23) History of esophagogastroduodenoscopy (EGD) History of cataract surgery H/O rectal polypectomy History of removal of cyst Family History Father Colon cancer Mother Stroke Social History Housing: House Alcohol intake: never Patient Tobacco Use Status: Former Tobacco user Quit Date: 2002 e-Cigarette/Vaping Use: Never Used Second Hand Smoke Exposure: No service: No Current occupational status: retired Cognitive needs: No Hearing needs: No Vision needs: Yes Review of Systems Const Reports as per HPI Eyes Reports no additional complaints ENT Reports no additional complaints Card Reports as per HPI Resp Reports no additional complaints GI Reports as per HPI Reports as per HPI Musc Reports as per HPI Neuro Reports no additional complaints Psych Reports no additional complaints Endo Reports no additional complaints Physical Exam Const General: cooperative, healthy appearing, comfortable, no acute distress, well developed, alert and awake Orientation/consciousness: patient oriented x3 Limitations: no limitations HEENT Head: Yes normal to inspection, Yes normocephalic and Yes atraumatic Ears: hearing grossly normal bilaterally Eyes General: appearance normal, both eyes and all related structures Neck Neck: Yes normal visual inspection and Yes trachea midline Chest Chest palpation & inspection: normal inspection of the chest Resp Effort & Inspection: normal respiratory effort and able to speak in complete sentences Cardio Rate: regular rate GI Inspection: Yes normal to inspection General: Yes no CVA tenderness Back/Spine/Pelvis Back: no CVA tenderness Skin General skin exam: no rashes or lesions noted Neuro General: patient oriented x3 Extrem General: Yes normal to inspection Psych Appearance: grossly normal and well kempt Mental Status: mental status grossly normal Speech and movement: Normal speech and movement present and Clear speech present Affect: normal affect Attitude: cooperative Thought process: Normal thought process present Thought content: Normal thought content present Insight: Fair insight present (Psych) Judgement: Fair judgement present (Psych) Office Procedures Post Void Residual Post Residual Void Post Void Residual (PVR): 0 [id number]-[id number] Void Residual by ultrasound Results AMB Urinalysis, Automated UA Leukoctes 0 Inge/uL Last Edit by Bita Cheung on 07/13/23 10:12 UA Nitrite Negative Last Edit by StreamLink Softwareyosvany Cheung on 07/13/23 10:12 UA Urobilinogen 0.2 mg/dL Last Edit by Bita Cheung on 07/13/23 10:12 UA Protein 0 mg/dL Last Edit by Bita Cheung on 07/13/23 10:12 UA pH 6.0 Last Edit by Bita Cheung on 07/13/23 10:12 UA Blood 0 Ortega/uL Last Edit by StreamLink Softwareyosvany Cheung on 07/13/23 10:12 UA Specific [place] 1.025 Last Edit by Katoshanae VisualXcriptjessica on 07/13/23 10:12 UA Ketone Negative Last Edit by StreamLink Softwareyosvany Cheung on 07/13/23 10:12 UA Bilirubin 0 mg/dL Last Edit by StreamLink Softwareyosvany Cheung on 07/13/23 10:12 UA Glucose 0 mg/dL Last Edit by StreamLink Softwareyosvany Cheung on 07/13/23 10:12 Results Reviewed Results Reviewed: Laboratory Last Values Urine pH (Auto) 6.0 07/13/23 09:58 Specific [place] (Auto) 1.025 07/13/23 09:58 Urine Protein (Auto) 0 mg/dL 07/13/23 09:58 Glucose (UA)(Auto) 0 mg/dL 07/13/23 09:58 Urine Ketones (Auto) Negative 07/13/23 09:58 Urine Blood (Auto) 0 Ortega/uL 07/13/23 09:58 Urine Nitrite (Auto) Negative 07/13/23 09:58 Urine Bilirubin (Auto) 0 mg/dL 07/13/23 09:58 Urine Urobilinogen (Auto) 0.2 mg/dL 07/13/23 09:58 Leukocyte Esterase (Auto) 0 Inge/uL 07/13/23 09:58 Date of Service: 06/28/23 EXAMINATION: US PELVIS LIMITED (BLADDER) FINDINGS: BLADDER: Well distended. Bilateral ureteral jets are demonstrated. Prevoid bladder volume is 410.3 mL. Postvoid bladder volume is 78.2 mL. The prostate volume is 33.6 mL. IMPRESSION: Moderate postvoid residual bladder volume. Assessment & Plan Assessment & Plan (1) Nocturia: Code(s): R35.1 - Nocturia (2) Lower urinary tract symptoms: Code(s): R39.9 - Unspecified symptoms and signs involving the genitourinary system (3) Urinary frequency: Code(s): R35.0 - Frequency of micturition Plan In office urinalysis results reviewed with the patient today; as noted above. Recent bladder ultrasound results reviewed with the patient today; as noted above. Recent PSA results reviewed with the patient today; as noted above. Patient reports lower urinary tract symptoms are not bothersome at this time and would like to continue with surveillance monitoring Discussed at length potential causes for lower urinary tract symptoms patient is experiencing. Discussed trial of medication verses in office cystoscopy for further assessment evaluation Discussed at length lifestyle modifications to assist with lower urinary tract symptoms Discussed bladder triggers/irritants. Follow-up in 6 months with PVR; or sooner with any issues, concerns, and or questions. Orders: Orders AMB Urinalysis Automated 07/13/23 Z13.9 - Encounter for screening, unspecified AMB Post Void Residual by ultrasound 07/13/23 R35.0 - Frequency of micturition Patient Instructions: The patient had an opportunity to ask questions regarding the treatment plan. All questions were answered. Physical exam, labs, and imaging were discussed and reviewed in detail. As well as risks, benefits, and discussion of treatment choices. No major barriers to understanding were identified. The patient expressed understanding and agreement with the above treatment plan. The patient was made aware they should contact our office by phone for worsening of their current condition, the appearance of new symptoms, or with any questions or concerns. Compliance is encouraged with any medications and follow up testing that is ordered. It is a privilege to be allowed the opportunity to participate in? your urological care.? Again, if you have any questions or concerns If you have any questions or concerns please do not hesitate to contact me. The office is [phone]. This note is constructed using voice recognition software. While every effort has been made to ensure accuracy microarray specialist errors may have been included. Yours sincerely, SAMEERA Blankenship Coding Level of Care Code Est Pt Level 3 (66204) Diagnoses Nocturia R35.1 Lower urinary tract symptoms R39.9 Urinary frequency R35.0 CPT Codes Post Residual Void - PVR CPT Code: 16044-Qtni Void Residual by ultrasound ([id number])
== END 2023-07-13 10:39 | disposition home or self-care (01) ==
PROVIDERS: PCP Internal Medicine; Visit Provider Nurse Practitioner Family
DX: R35.1 Nocturia (principal); R39.9 Unspecified symptoms and signs involving the genitourinary system; R35.0 Frequency of micturition
CPT/HCPCS: 99213

== ENCOUNTER → 2023-07-13 09:33 | Outpatient (BNVA) | payer MEDICARE, SELFPAY | PROVIDERS: PCP Internal Medicine; Visit Provider Nurse Practitioner Family | DX: R35.1 Nocturia (principal); R35.0 Frequency of micturition; R39.9 Unspecified symptoms and signs involving the genitourinary system | CPT/HCPCS: 51798; 81003; 99212 ==

== ENCOUNTER 2023-07-14 10:15 | Outpatient (AMB) | payer MEDICARE, SELFPAY ==
[2023-07-14 10:24] VITALS: BP 124/70; PULSE 70; BMI 26.6
--- NOTE | 2023-07-14 10:24 | A.OFFPC_ITS ---
Vital Signs 07/14/23 10:24 Height 5 ft 11 in Weight 191 lb BMI 26.6 BP 124/70 Blood Pressure Location Lt brachial Position Sitting Pulse 70 Pulse Source Pulse Oximeter Oxygen Delivery Method Room Air Intake Visit Reasons: 3 month f/u Personalized Living Manager Required: No Supervisor [employer]: Not Required per policy Accompanied by: Self / Same As Patient Allergies No Known Allergies Allergy (Verified 07/14/23 10:24) Medication List - Last Reconciled 07/14/23 by Moo Alcazar MD amlodipine 10 mg PO DAILY dorzolamide-timolol 22.3-6.8 mg/mL 1 drp ophthalmic (eye) BID hydrochlorothiazide 25 mg PO DAILY omeprazole 40 mg PO QAM Tobacco use date assessed: 08/09/22 Fall risk assessment: No Falls in past year Last assessed Fall Risk: 07/14/23 Dental Screening Dental Screen Date: 07/14/23 Did you have a dental visit in the last 12 months?: Yes Did you have a dental problem in the last 6 months where you did not have access to dental care?: No Was dental information given to patient?: Patient has dentist HPI 3 month f/u HPI Details HTN on Rx; doing well; compliant [facility] Medical History Arrhythmia Hypertension Surgical History History of laparoscopic cholecystectomy (01/27/23) History of esophagogastroduodenoscopy (EGD) History of cataract surgery H/O rectal polypectomy History of removal of cyst Family History Father Colon cancer Mother Stroke Social History Housing: House Alcohol intake: never Patient Tobacco Use Status: Former Tobacco user Quit Date: 2002 e-Cigarette/Vaping Use: Never Used Second Hand Smoke Exposure: No service: No Current occupational status: retired Cognitive needs: No Hearing needs: No Vision needs: Yes Questionnaire Thrive Questionnaire Date Thrive assessed: 08/09/22 LAILA-7 AMB Questionnaire LAILA-7 Date LAILA - 7 assessed: 08/09/22 Source: Developed by Drs. Luciano Alfred, Maya Henderson, Jesse Grullon and colleagues, with an educational emile from [employer]. Review of Systems Const Denies chills, Denies headache(s) and Denies weight loss ENT Denies headache(s) Card Denies chest pain, Denies syncope, Denies irregular heart rhythm and Denies dyspnea Resp Denies chest congestion, Denies cough and Denies dyspnea GI Denies abdominal pain, Denies change in stool character, Denies nausea and Denies vomiting Musc Denies deformity and Denies joint swelling Neuro Denies syncope and Denies headache(s) Physical exam (Primary Care) Vital Signs: Last Vital Signs Pulse 70 07/14/23 10:24 BP 124/70 07/14/23 10:24 Oxygen Delivery Method Room Air 07/14/23 10:24 BMI result Body Mass Index 26.6 Tobacco/Smoking Status: Tobacco use Status Tobacco use date assessed 08/09/22 07/14/23 10:25 Patient Tobacco Use Status Former Tobacco user 07/14/23 10:25 e-Cigarette/Vaping Use Never Used 07/14/23 10:25 Thrive Assessment: Date of Thrive Assessment Date Thrive assessed 08/09/22 07/14/23 10:25 Const General: cooperative, comfortable, no acute distress and alert Neck Neck: Yes no lymphadenopathy Thyroid: Thyroid normal Resp Effort & Inspection: normal respiratory effort Auscultation: clear to auscultation bilaterally Percussion: percussion normal Cardio Jugular venous distension: no JVD Palpation: normal PMI Rate: regular rate Rhythm: regular rhythm Heart sounds: S1 normal heart sound present and S2 normal heart sound present GI Inspection: Yes normal to inspection Palpation (GI): No hepatosplenomegaly present Skin General skin exam: no rashes or lesions noted Extrem General: Yes no clubbing, cyanosis or edema Assessment and Plan Assessment & Plan (1) Hypertension: Code(s): I10 - Essential (primary) hypertension Plan: stable; same rx Orders: Orders Lipid Panel Today E78.5 - Hyperlipidemia, unspecified Complete Blood Count Auto Diff Today D64.9 - Anemia, unspecified Comprehensive [place]. Panel Fast Today N28.9 - Disorder of kidney and ureter, unspecified Coding Level of Care Code Est Pt Level 3 (43849) Diagnoses Hypertension I10
== END 2023-07-14 10:37 | disposition home or self-care (01) ==
PROVIDERS: PCP Internal Medicine; Visit Provider Internal Medicine
DX: I10 Essential (primary) hypertension (principal)
CPT/HCPCS: 99213

== ENCOUNTER 2023-11-09 08:12 | Outpatient (REF) | payer MEDICARE, SELFPAY ==
[2023-11-09 08:30] LABS: MANUAL DIFF FLAG NO
[2023-11-09 08:46] LABS: Basophils Percent Auto 0.5 % (0-2); Eosinophils Absolute Auto 0.2 X10*3/uL (0.0-0.4); Eosinophils Percent Auto 1.8 % (0-4); Hematocrit 45.8 % (42.0-52.0); Hemoglobin 16.2 g/dl (14.0-18.0); Imm Gran Abs Auto 0.04 X10*3/uL (0.00-0.03); Imm Gran Pct Auto 0.5 % (0.0-0.4); Lymphocytes Absolute Auto 1.4 X10*3/uL (1.2-4.9); Lymphocytes Percent Auto 16.4 % (20-40); Mean Corpuscular HGB Conc 35.4 g/dl (31.0-36.0); Mean Corpuscular Hemoglobin 31.3 pg (27.0-33.0); Mean Corpuscular Volume 88.6 fL (80.0-98.0); Mean Platelet Volume 8.9 fL (9.4-12.4); Monocytes Absolute Auto 0.5 X10*3/uL (0.1-1.2); Monocytes Percent Auto 6.4 % (2-11); Neutrophils Absolute Auto 6.2 x10*3/uL (2.0-8.3); Neutrophils Percent Auto 74.4 % (45-73); Platelet Count 336 X10*3/uL (160-400); Red Blood Count 5.17 X10*6/uL (4.60-5.80); White Blood Count 8.3 X10*3/uL (4.8-10.8)
[2023-11-09 09:43] LABS: Alanine Aminotransferase 41 U/L (0-40); Albumin Level 3.3 g/dL (3.5-5.0); Alkaline Phosphatase 52 U/L (39-117); Anion Gap 8 (12-20); Aspartate Amino Transferase 24 U/L (5-37); Bilirubin Total 1.4 mg/dL (0.0-1.0); Blood Urea Nitrogen 20 mg/dL (9-16); Calcium 8.6 mg/dL (8.4-10.2); Carbon Dioxide 29 mmol/L (22-29); Chloride 107 mmol/L (96-108); Cholesterol 141 mg/dL (<200); Estimated Glomerular Filt Rate > 60; Glucose Fasting 102 mg/dL (60-99); HDL Cholesterol 40 mg/dL (>40); LDL Cholesterol Calculated 88 mg/dL (<100); Potassium 3.4 mmol/L (3.3-5.1); Sodium 141 mmol/L (135-145); Total Protein 5.3 g/dL (6.5-8.0); Triglycerides 65 mg/dL (<150)
[2023-11-09 10:09] LABS: Prostate Specific Antigen Scr 3.17 ng/mL (<0.05-4.0)
== END 2023-11-09 08:13 | disposition home or self-care (01) ==
LOC: HO.LAB 08:12
PROVIDERS: PCP Internal Medicine; Visit Provider Internal Medicine
DX: Z00.00 Encounter for general adult medical examination without abnormal findings (principal); Z12.5 Encounter for screening for malignant neoplasm of prostate; E78.5 Hyperlipidemia, unspecified; D64.9 Anemia, unspecified; N28.9 Disorder of kidney and ureter, unspecified
CPT/HCPCS: 36415; 80053; 80061; 84153; 85025

== ENCOUNTER 2023-11-16 10:21 | Outpatient (AMB) | payer MEDICARE, SELFPAY ==
[2023-11-16 10:22] VITALS: BP 118/68; PULSE 51; O2SAT 98; BMI 26.9
--- NOTE | 2023-11-16 10:22 | MHC.PC.OV ---
Vital Signs 11/16/23 10:22 Height 5 ft 11 in Weight 193 lb BMI 26.9 BP 118/68 Blood Pressure Location Lt brachial Position Sitting Pulse 51 Pulse Source Pulse Oximeter Pulse Oximetry (%) 98 Oxygen Delivery Method Room Air Intake Visit Reasons: 4 month f/u Workplace Relations Adviser Required: No Professor/Nurse Anesthetist: Not Required per policy Accompanied by: Self / Same As Patient Allergies No Known Allergies Allergy (Verified 11/16/23 10:22) Medication List - Last Reconciled 11/16/23 by Moo Alcazar MD amlodipine 10 mg PO DAILY dorzolamide-timolol 22.3-6.8 mg/mL 1 drp ophthalmic (eye) BID hydrochlorothiazide 25 mg PO DAILY omeprazole 40 mg PO QAM Tobacco use date assessed: 11/16/23 Fall risk assessment: No Falls in past year Last assessed Fall Risk: 11/16/23 Dental Screening Dental Screen Date: 11/16/23 Did you have a dental visit in the last 12 months?: Yes Did you have a dental problem in the last 6 months where you did not have access to dental care?: No Was dental information given to patient?: Patient has dentist HPI 4 month f/u HPI Details HTN on Rx; compliant and doing well PFSH Medical History Arrhythmia Hypertension Surgical History History of laparoscopic cholecystectomy (01/27/23) History of esophagogastroduodenoscopy (EGD) History of cataract surgery H/O rectal polypectomy History of removal of cyst Family History Father Colon cancer Mother Stroke Social History Housing: House Alcohol intake: never Patient Tobacco Use Status: Former Tobacco user Quit Date: 2002 e-Cigarette/Vaping Use: Never Used Second Hand Smoke Exposure: No service: No Current occupational status: retired Cognitive needs: No Hearing needs: No Vision needs: Yes Questionnaire PHQ-9 Over the last 2 weeks, how often have you been bothered by any of the following problems? 1. Little interest or pleasure in doing things: not at all 2. Feeling down, depressed, or hopeless: not at all 3. Trouble falling or staying asleep, or sleeping too much: not at all 4. Feeling tired or having little energy: not at all 5. Poor appetite or overeating: not at all 6. Feeling bad about yourself - or that you are a failure or have let yourself or your family down: not at all 7. Trouble concentrating on things, such as reading the newspaper or watching television: not at all 8. Moving or speaking so slowly that other people could have noticed. Or the opposite - being so fidgety or restless that you have been moving around a lot more than usual: not at all 9. Thoughts that you would be better off or of hurting yourself in some way: not at all Total score: 0 Depression Screening Interpretation: Negative Depression Screening Done: Yes 26066 - PHQ-9 Billing: Yes Source: Developed by Drs. Luciano Alfred, Maya Henderson, Jesse Grullon and colleagues, with an educational emile from [employer]. Thrive Questionnaire Date Thrive assessed: 11/16/23 I am a: Patient What is your living situation today?: I have a steady place to live Within the past 12 months, did the food you bought not last and you didn't have the money to get more?: Never true Within the past 12 months, did you worry whether your food would run out before you got money to buy more?: Never true Do you have trouble paying for medicines?: No Do you have trouble getting transportation to medical appointments?: No Do you have trouble paying your heating and electricity bill?: No Do you have trouble taking care of your child, family member or friend?: No Do you have trouble with day-to-day activities such as bathing, preparing meals, shopping, managing finances, etc.?: No Are you currently unemployed and looking for a job?: No Are you interested in more education?: No Please select the resources that you would like help with: None THRIVE Score: 0 AUDIT C Alcohol Use Questionnaire (AUDIT-C) 1. How often do you have a drink containing alcohol?: Never Total Score: 0 Score Reviewed/Action Taken: Yes LAILA-7 AMB Questionnaire LAILA-7 Date LAILA - 7 assessed: 11/16/23 Feeling nervous, anxious, or on edge: 0 = Not at all Not being able to stop or control worryin = Not at all Worrying too much about different things: 0 = Not at all Trouble relaxin = Not at all Being so restless that it is hard to sit still: 0 = Not at all Becoming easily annoyed or irritable: 0 = Not at all Feeling afraid as if something awful might happen: 0 = Not at all Total LAILA-7 score (0-4 normal; 5-9 mild; 10-14 moderate; 15-21 severe): 0 Source: Developed by Drs. Luciano Alfred, Maya Henderson, Jesse Grullon and colleagues, with an educational emile from [employer]. LAILA-7 Assessment Billing LAILA-7 Assessment Tool: LAILA-7 Assessment 92696 Review of Systems Const Denies chills, Denies headache(s) and Denies weight loss ENT Denies headache(s) Card Denies chest pain, Denies syncope, Denies irregular heart rhythm and Denies dyspnea Resp Denies chest congestion, Denies cough and Denies dyspnea GI Denies abdominal pain, Denies change in stool character, Denies nausea and Denies vomiting Musc Denies deformity and Denies joint swelling Neuro Denies syncope and Denies headache(s) Physical exam (Primary Care) Vital Signs: Last Vital Signs Pulse 51 11/16/23 10:22 BP 118/68 11/16/23 10:22 Pulse Ox 98 11/16/23 10:22 Oxygen Delivery Method Room Air 11/16/23 10:22 BMI result Body Mass Index 26.9 Tobacco/Smoking Status: Tobacco use Status Tobacco use date assessed 11/16/23 11/16/23 10:23 Patient Tobacco Use Status Former Tobacco user 11/16/23 10:23 e-Cigarette/Vaping Use Never Used 11/16/23 10:23 PHQ-9: PHQ-9 Score PHQ-9: Total score 0 11/16/23 10:23 Depression Screening Interpretation: Negative Thrive Assessment: Date of Thrive Assessment Date Thrive assessed 11/16/23 11/16/23 10:23 Const General: cooperative, comfortable, no acute distress and alert Neck Neck: Yes no lymphadenopathy Thyroid: Thyroid normal Resp Effort & Inspection: normal respiratory effort Auscultation: clear to auscultation bilaterally Percussion: percussion normal Cardio Jugular venous distension: no JVD Palpation: normal PMI Rate: regular rate Rhythm: regular rhythm Heart sounds: S1 normal heart sound present and S2 normal heart sound present GI Inspection: Yes normal to inspection Palpation (GI): No hepatosplenomegaly present Skin General skin exam: no rashes or lesions noted Extrem General: Yes no clubbing, cyanosis or edema Assessment and Plan Assessment & Plan (1) Hypertension: Code(s): I10 - Essential (primary) hypertension Plan: stable; same rx Coding Level of Care Code Est Pt Level 3 (90682) Diagnoses Hypertension I10 Additional Codes LAILA-7 Assessment Billing - LAILA-7 Assessment Tool: LAILA-7 Assessment 65160 ([id number])
== END 2023-11-16 10:51 | disposition home or self-care (01) ==
PROVIDERS: PCP Internal Medicine; Visit Provider Internal Medicine
DX: I10 Essential (primary) hypertension (principal)
CPT/HCPCS: 99213

== ENCOUNTER 2023-12-14 08:34 | Outpatient (REF) | payer MEDICARE, SELFPAY ==
[2023-12-14 09:47] LABS: Blood Urea Nitrogen 15 mg/dL (9-16); Estimated Glomerular Filt Rate > 60
[2023-12-15 08:53] LABS: Carbohydrate Antigen 19-9 8 U/mL (<34)
== END 2023-12-14 08:35 | disposition home or self-care (01) ==
LOC: HO.LAB 08:34
PROVIDERS: PCP Internal Medicine; Visit Provider Internal Medicine
DX: D49.0 Neoplasm of unspecified behavior of digestive system (principal)
CPT/HCPCS: 36415; 82565; 84520; 86301

== ENCOUNTER 2023-12-21 07:59 | Outpatient (REF) | payer MEDICARE, SELFPAY ==
--- NOTE | ~2023-12-21 | MR_ITS ---
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 Multiplanar multisequence MR imaging of the abdomen was performed without IV contrast enhancement. Multiphasic Axial T1-weighted fat-suppressed images of the upper abdomen were obtained after IV injection of 9 mL Gadavist. Coronal T1-weighted fat-suppressed images of the abdomen were obtained following the dynamic axial series. MR cholangiopancreatography was performed with heavily T2 weighted sequences. 3-dimensional reconstruction of image data was performed. This was performed under concurrent direct supervision and monitoring by radiologist. Maximum intensity projection images were constructed. FINDINGS: MR CHOLANGIOPANCREATOGRAPHY: Gallbladder is surgically absent. Bilateral intra hepatic bile ducts, common hepatic duct and common bile duct are normal in size without filling defects. Pancreatic duct is normal in size. There is connection between the largest pancreatic uncinate process cyst with the main pancreatic duct through a branch duct. The pancreatic head cyst also shows collection with the main pancreatic duct. Much smaller cystic lesions are seen in the proximal and distal pancreatic body, measuring up to 0.6 cm in diameter without definite connection without pancreatic duct. LIVER: The liver contains multiple T2 hyperintense nonenhancing simple cysts. The largest cyst is found at lateral anterior capsular border of right hepatic lobe segment 6 measuring 1.3 cm in diameter. The largest left hepatic lobe simple cyst is found in anterior border of segment 3 measuring 1.2 cm in diameter. The calculated hepatic fat percentage is 18.0%, compatible with moderate hepatic steatosis. PANCREAS: A T2 hyperintense nonenhancing cystic lesion is seen at superior border of pancreatic head, measuring 0.6 cm in diameter (previously 0.5 cm), series 6 image #19, series 5 image #28. Unchanged similar T2 hyperintense nonenhancing cystic lesion is seen at the medial border of pancreatic uncinate process, measuring 0.88 cm in diameter (previously 0.8 cm), series 6 image #29, series 5 image #26. SPLEEN: Spleen is normal in size without focal lesion. ADRENAL: Bilateral adrenal glands are normal in shape and size. KIDNEYS: Bilateral kidneys are normal in size without focal lesion. Advanced L4-L5 and L5-S1 degenerative lumbar disc disease and mild posterior disc protrusion are seen. MR/MR abdomen wo/w con IMPRESSION: 1. Interval performance of cholecystectomy. 2. Moderate hepatic steatosis. 3. Unchanged Multiple hepatic simple cysts. 4. 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 Follow-up pre and postcontrast MRI of abdomen with MRCP sequence every 2 years x5 or 10 to patient reaches age of 80 are recommended by [employer]. 5. Advanced L4-L5 and L5-S1 degenerative lumbar disc disease and mild posterior disc protrusion.
[2023-12-21] MEDS: gadobutroL 10 ML VIAL IVPUSH (09:07)
== END 2023-12-21 08:00 | disposition home or self-care (01) ==
LOC: HO.MRI 07:59
PROVIDERS: PCP Internal Medicine; Visit Provider Internal Medicine
DX: D49.0 Neoplasm of unspecified behavior of digestive system (principal)
CPT/HCPCS: 74183; A9585

== ENCOUNTER 2023-12-28 10:16 | Day surgery (SDC) | payer MEDICARE, SELFPAY ==
[2023-12-27 07:44] VITALS: BMI 27.5
[2023-12-28 10:53] VITALS: BMI 27.3
[2023-12-28 11:11] VITALS: BP 130/72; PULSE 62; RESP 18; TEMP 36.8; O2SAT 97
--- NOTE | 2023-12-28 11:15 | HO.ANESPROP2 ---
Documented by User: Jodie Davis NP 12/27/23 12:06 HPI - Anesthesia Eval Consult details Narrative: 78yo M for Colonoscopy PMFSH Active Problems Active Problems: All Active Problems Nocturia (Acute) Lower urinary tract symptoms (Acute) Urinary frequency (Acute) Gallstones (Acute) Chronic GERD (Acute) Gout (Acute) Physical exam (Acute) Hypertension (Acute) Past Medical History Medical History (Updated 12/27/23 @ 07:37 by Jayla Blackmon RN) Hiatal hernia Tubular adenoma Glaucoma Arrhythmia Hypertension Family History Family History Father Colon cancer Mother Stroke Family history of problems with anesthesia: No Surgical History Surgical History (Updated 12/27/23 @ 07:37 by Jayla Blackmon RN) H/O colonoscopy History of laparoscopic cholecystectomy (01/27/23) History of esophagogastroduodenoscopy (EGD) History of cataract surgery H/O rectal polypectomy History of removal of cyst History of Problems with Anesthesia: No Social History Social History Housing: House Alcohol intake: never Patient Tobacco Use Status: Former Tobacco user e-Cigarette/Vaping Use: Never Used Second Hand Smoke Exposure: No Use of substances other than those prescribed or required for medical reasons: No Are you DNR?: No Advance Directives: No Advance Directives Information Provided: Yes service: No Current occupational status: retired Cognitive needs: No Hearing needs: No Vision needs: Yes Meds Allergies Allergy/AdvReac Type Severity Reaction Status Date / Time No Known Allergies Allergy Verified 11/16/23 10:22 Home Medications ?Medication ?Instructions ?Recorded ?Confirmed ?Last Taken ?Type dorzolamide 22.3 mg-timolol 6.8 1 drp ophthalmic (eye) BID 08/19/20 12/27/23 Unknown History mg/mL eye drops omeprazole 40 mg capsule,delayed 40 mg PO QAM 12/14/22 12/28/23 12/28/23 07:00 History release cholecalciferol (vitamin D3) 25 25 mcg PO DAILY 12/27/23 12/27/23 Unknown History mcg (1,000 unit) capsule (Vitamin D3) fexofenadine 60 mg tablet (Valentine 60 mg PO BID 12/27/23 12/27/23 Unknown History Allergy) mzqilbqx-zlw- 250 mg-dha 90 1 cap PO DAILY 12/27/23 12/27/23 Unknown History mg-epa 160 cv-nrud-qvgf-zeax capsule (Ocuvite Adult 50 Plus) vitamin B complex 1 cap PO DAILY 12/27/23 12/27/23 Unknown History Exam Height,Weight and Vital Signs: Height 5 ft 10 in Weight 87.09 kg Assessment and Plan Assessment Anesthesia Assessment: Chart Reviewed Final Anesthetic Review Family History of Problems with Anesthesia: No History of Problems with Anesthesia: No Documented by User: Nayely Reyes DO 12/28/23 11:15 [facility] Past Medical History Medical History (Updated 12/27/23 @ 07:37 by Jayla Blackmon RN) Hiatal hernia Tubular adenoma Glaucoma Arrhythmia Hypertension Family History Family History Father Colon cancer Mother Stroke Family history of problems with anesthesia: No Surgical History Surgical History (Updated 12/27/23 @ 07:37 by Jayla Blackmon RN) H/O colonoscopy History of laparoscopic cholecystectomy (01/27/23) History of esophagogastroduodenoscopy (EGD) History of cataract surgery H/O rectal polypectomy History of removal of cyst History of Problems with Anesthesia: No Social History Social History Housing: House Alcohol intake: never Patient Tobacco Use Status: Former Tobacco user e-Cigarette/Vaping Use: Never Used Second Hand Smoke Exposure: No Use of substances other than those prescribed or required for medical reasons: No Are you DNR?: No Advance Directives: No Advance Directives Information Provided: Yes service: No Current occupational status: retired Cognitive needs: No Hearing needs: No Vision needs: Yes Meds Allergies Allergy/AdvReac Type Severity Reaction Status Date / Time No Known Allergies Allergy Verified 11/16/23 10:22 Home Medications ?Medication ?Instructions ?Recorded ?Confirmed ?Last Taken ?Type dorzolamide 22.3 mg-timolol 6.8 1 drp ophthalmic (eye) BID 08/19/20 12/27/23 Unknown History mg/mL eye drops omeprazole 40 mg capsule,delayed 40 mg PO QAM 12/14/22 12/28/23 12/28/23 07:00 History release cholecalciferol (vitamin D3) 25 25 mcg PO DAILY 12/27/23 12/27/23 Unknown History mcg (1,000 unit) capsule (Vitamin D3) fexofenadine 60 mg tablet (Valentine 60 mg PO BID 12/27/23 12/27/23 Unknown History Allergy) [id number]-vuu-krajb2 250 mg-dha 90 1 cap PO DAILY 12/27/23 12/27/23 Unknown History mg-epa 160 ph-ausi-fswj-zeax capsule (Ocuvite Adult 50 Plus) vitamin B complex 1 cap PO DAILY 12/27/23 12/27/23 Unknown History Exam Exam Date and Time: December 28, 2023 1111 Height,Weight and Vital Signs: Height 5 ft 10 in Weight 87.09 kg Height 5 ft 10 in Weight 86.183 kg Vital Signs Temperature 98.2 F 12/28/23 11:11 Pulse Rate 62 12/28/23 11:11 Respiratory Rate 18 12/28/23 11:11 Blood Pressure 130/72 12/28/23 11:11 Pulse Oximetry 97 12/28/23 11:11 Oxygen Delivery Method Room Air 12/28/23 11:11 Temperature 98.2 F 12/28/23 11:11 Pulse Rate 62 12/28/23 11:11 Respiratory Rate 18 12/28/23 11:11 Blood Pressure 130/72 12/28/23 11:11 Pulse Oximetry 97 12/28/23 11:11 Oxygen Delivery Method Room Air 12/28/23 11:11 Airway Mallampati Class: II TM Dist: <=3cm Neck ROM: Full Loose/Missing/Broken Teeth: No (patient denies any loose or broken teeth) Heart: S1S2 Lungs: CTAB Assessment and Plan Assessment Anesthesia Assessment: Anesthesia Plan Discussed and Chart Reviewed Final Anesthetic Review Family History of Problems with Anesthesia: No History of Problems with Anesthesia: No NPO: Yes ASA Class: II Final Preanesthetic Review: No Changes in Pt Med Stat, Meds/Allgs Chart Reviewed, Consent Obtained/Reviewed and Anes Risks/Benef Reviewed Patient Risk: Low Procedure Risk: Low Anesthetic Plan Anesthetic Plan: MAC: and Agree w/ Assess. and Plan Disposition: Standard PACU
[2023-12-28] MEDS: Lactated Ringers 1,000 ML 100 ML IVCONT (11:19)
[2023-12-28 12:25] VITALS: BP 92/51; PULSE 56; RESP 16; TEMP 36.1; O2SAT 97
--- NOTE | 2023-12-28 12:32 | P.BOP_ITS ---
Brief Operative Note Date of Service: 12/28/23 Pre-op diagnosis: Screening Post-op diagnosis: other (Diverticulosis) Procedure: Colonoscopy to the cecum and TI Surgeon: Luciano Munroe MD Anesthesia: MAC Was an Geothermal Powerplant Supervisor used for this Procedure?: No Estimated blood loss (mL): 0 Pathology: none sent Condition: stable Disposition: PACU
[2023-12-28 12:40] VITALS: BP 109/64; PULSE 70; RESP 16; O2SAT 97
[2023-12-28 12:55] VITALS: BP 117/56; PULSE 50; RESP 16; TEMP 36.1; O2SAT 98
--- NOTE | 2023-12-28 15:23 | OP_ITS ---
DATE OF SERVICE: 12/28/2023 SURGEON: Luciano Munroe MD INDICATIONS: The patient presents for evaluation of colorectal cancer screening and personal history of tubular adenoma of the colon. Full consent has been obtained from him for this, including risks of bleeding and perforation. PREOPERATIVE DIAGNOSIS: POSTOPERATIVE DIAGNOSIS: PROCEDURE PERFORMED: Colonoscopy to the cecum and terminal ileum. ESTIMATED BLOOD LOSS: COMPLICATIONS: ANESTHESIA: Monitored anesthesia care. ASSISTANTS: SPECIMENS: PREOPERATIVE DIAGNOSES: Colorectal cancer screening, personal history of tubular adenoma of the colon, diverticulosis, and internal hemorrhoids. POSTOPERATIVE DIAGNOSES: Colorectal cancer screening and personal history of tubular adenoma of the colon. DESCRIPTION OF PROCEDURE: The patient was placed in the left lateral decubitus position. The digital rectal exam revealed no abnormalities. The Olympus video pediatric colonoscope was then entered into the rectum and advanced easily to the cecum. Once in the cecum, I did identify normal-appearing cecal pouch with appendiceal orifice and a normal-appearing ileocecal valve. The terminal ileum was cannulated and appeared normal. Scope was withdrawn back in the colon. The entire cecum and ileocecal valve appeared normal. The scope was slowly withdrawn assessing all mucosal surfaces carefully. Preparation was excellent. I did not visualize any sign of polyps, colitis, nor angiodysplasias. There was a moderate amount of sigmoid diverticulosis. In the rectum, scope was retroflexed, visualizing internal hemorrhoids, but no other pathology. The rectal mucosa appeared normal. Scope was straightened and withdrawn from the patient. He tolerated the procedure well and was returned to the recovery area in stable condition. IMPRESSION: 1. Diverticulosis. 2. Internal hemorrhoids. PLAN: Given his age and this negative exam, I would recommend that he not need any further screening colonoscopies going forward. He will continue his omeprazole for his history of reflux. He did have a recent MRI of his pancreas in regard to his previous history of pancreatic cyst and that will be followed up upon as well. MD ARIS Oconnell/ABEL / [phone]
--- NOTE | 2023-12-29 06:27 | PC.NURSE ---
24hr update documented in paper chart.
== END 2023-12-28 13:54 | disposition home or self-care (01) ==
PROVIDERS: PCP Internal Medicine; Visit Provider Internal Medicine
PROC: 0DJD8ZZ Inspection of Lower Intestinal Tract, Via Natural or Artificial Opening Endoscopic (ICD-10-PCS; CPT 45378; principal; 2023-12-28 11:30)
DX: Z12.11 Encounter for screening for malignant neoplasm of colon (principal); K57.30 Diverticulosis of large intestine without perforation or abscess without bleeding; K64.8 Other hemorrhoids; Z86.010 Personal history of colon polyps; Z80.0 Family history of malignant neoplasm of digestive organs; I10 Essential (primary) hypertension
CPT/HCPCS: G0105; J2704

== ENCOUNTER 2024-01-09 09:38 | Outpatient (AMB) | payer MEDICARE, SELFPAY ==
--- NOTE | 2024-01-09 09:44 | MHC.OFFVIS ---
Intake Visit Reasons: 6M f/u w/ PVR Intake Note: Patient presents for follow up visit for : Nocturia Urology Medications: none Blood Thinner: none PVR: 49ml's Business Consult Required: No Accompanied by: Self / Same As Patient Allergies No Known Allergies Allergy (Verified 01/09/24 10:08) Medication List - Last Reconciled 01/09/24 by FABIOLA Blankenship-BC amlodipine 10 mg PO DAILY cholecalciferol (vitamin D3) (Vitamin D3) 25 mcg PO DAILY dorzolamide-timolol 22.3-6.8 mg/mL 1 drp ophthalmic (eye) BID fexofenadine (Valentine Allergy) 60 mg PO BID hydrochlorothiazide 25 mg PO DAILY uy-vc-pk3-hkz-kpq-dxrd-lut-francesco 250 mg (90 mg-160 mg) (Ocuvite Adult 50 Plus) 1 cap PO DAILY omeprazole mg PO QAM vitamin B complex 1 cap PO DAILY HPI Comments Details: Toby is a very pleasant 78-year-old male patient of Dr. Alcazar. He has a past medical history of arrhythmia, GERD, peripheral vascular disease, and hypertension. He presents to the office today for a follow up of his lower urinary tract symptoms. In discussion with the patient today reports since his last office visit here approximately 6 months ago he continues with episodes of nocturia however feels they are manageable. He also reports following up with Dr. Munroe and having had an MRI for further assessment evaluation of his pancreas. Previous workup has included a bladder ultrasound noting the bladder is well distended. Bilateral ureteral jets are demonstrated. Pre void bladder volume is approximately 410 mL. Postvoid bladder volume is approximately 80 mL. The prostate volume is approximately 34 mL. PSAs are as follows: 06/11 2.0, 04/12 1.6, 11/13 2.2, 07/16 1.7, 11/15 3.2 He does continue to report nocturia, weak stream, and urinary frequency. However he does not feel the symptoms are bothersome enough at this time for further intervention with medication and or in office cystoscopy for further assessment evaluation. He otherwise denies incontinence, hematuria, dysuria, foul-smelling urine, flank pain, fever, and or chills. In office urinalysis results reviewed with the patient today. PVR 49 mL. Discussed limiting fluids 2-3 hours prior to bed to assist with decreasing episodes of nocturia as well as attempting to double void to assist with incomplete bladder emptying. Discussed at length potential causes for lower urinary tract symptoms patient is experiencing. Discussed trial of low-dose terazosin or tamsulosin and finasteride. Patient otherwise denies any issues or concerns at this time. BHARATHI offered however deferred. [facility] Medical History Hiatal hernia Tubular adenoma Glaucoma Arrhythmia Hypertension Surgical History H/O colonoscopy History of laparoscopic cholecystectomy (01/27/23) History of esophagogastroduodenoscopy (EGD) History of cataract surgery H/O rectal polypectomy History of removal of cyst Family History Father Colon cancer Mother Stroke Social History Housing: House Alcohol intake: never Patient Tobacco Use Status: Former Tobacco user e-Cigarette/Vaping Use: Never Used Second Hand Smoke Exposure: No service: No Current occupational status: retired Cognitive needs: No Hearing needs: No Vision needs: Yes Review of Systems Const Reports as per HPI Eyes Reports no additional complaints ENT Reports no additional complaints Card Reports as per [facility] Resp Reports no additional complaints GI Reports as per HPI Reports as per [facility] Musc Reports as per HPI Neuro Reports no additional complaints Psych Reports no additional complaints Endo Reports no additional complaints Physical Exam Const General: cooperative, healthy appearing, comfortable, no acute distress, well developed, alert and awake Orientation/consciousness: patient oriented x3 Limitations: no limitations HEENT Head: Yes normal to inspection, Yes normocephalic and Yes atraumatic Ears: hearing grossly normal bilaterally Eyes General: appearance normal, both eyes and all related structures Neck Neck: Yes normal visual inspection and Yes trachea midline Chest Chest palpation & inspection: normal inspection of the chest Resp Effort & Inspection: normal respiratory effort and able to speak in complete sentences Cardio Rate: regular rate GI Inspection: Yes normal to inspection General: Yes no CVA tenderness Back/Spine/Pelvis Back: no CVA tenderness Skin General skin exam: no rashes or lesions noted Neuro General: patient oriented x3 Extrem General: Yes normal to inspection Psych Appearance: grossly normal and well kempt Mental Status: mental status grossly normal Speech and movement: Normal speech and movement present and Clear speech present Affect: normal affect Attitude: cooperative Thought process: Normal thought process present Thought content: Normal thought content present Insight: Fair insight present (Psych) Judgement: Fair judgement present (Psych) Office Procedures Post Void Residual Post Residual Void Post Void Residual (PVR): 49 [id number] Void Residual by ultrasound Results AMB Urinalysis, Automated UA Leukoctes 0 Inge/uL Last Edit by [employer] on 01/09/24 09:57 UA Nitrite Negative Last Edit by [employer] on 01/09/24 09:57 UA Urobilinogen 0.2 mg/dL Last Edit by [employer] on 01/09/24 09:57 UA Protein 0 mg/dL Last Edit by [employer] on 01/09/24 09:57 UA pH 6.0 Last Edit by [employer] on 01/09/24 09:57 UA Blood 0 Ortega/uL Last Edit by [employer] on 01/09/24 09:57 UA Specific [place] 1.015 Last Edit by [employer] on 01/09/24 09:57 UA Ketone Negative Last Edit by [employer] on 01/09/24 09:57 UA Bilirubin 0 mg/dL Last Edit by [employer] on 01/09/24 09:57 UA Glucose 0 mg/dL Last Edit by [employer] on 01/09/24 09:57 Results Reviewed Results Reviewed: Laboratory Last Values Urine pH (Auto) 6.0 01/09/24 09:46 Specific [place] (Auto) 1.015 01/09/24 09:46 Urine Protein (Auto) 0 mg/dL 01/09/24 09:46 Glucose (UA)(Auto) 0 mg/dL 01/09/24 09:46 Urine Ketones (Auto) Negative 01/09/24 09:46 Urine Blood (Auto) 0 Ortega/uL 01/09/24 09:46 Urine Nitrite (Auto) Negative 01/09/24 09:46 Urine Bilirubin (Auto) 0 mg/dL 01/09/24 09:46 Urine Urobilinogen (Auto) 0.2 mg/dL 01/09/24 09:46 Leukocyte Esterase (Auto) 0 Inge/uL 01/09/24 09:46 Assessment & Plan Assessment & Plan (1) Nocturia: Code(s): R35.1 - Nocturia Category: Medical (2) Lower urinary tract symptoms: Code(s): R39.9 - Unspecified symptoms and signs involving the genitourinary system Category: Medical (3) Urinary frequency: Code(s): R35.0 - Frequency of micturition Category: Medical Plan In office urinalysis results reviewed with the patient today; as noted above. PVR 49 mL. Recent PSA results reviewed with the patient today; as noted above. Patient reports lower urinary tract symptoms are not bothersome at this time and would like to continue with surveillance monitoring Discussed at length potential causes for lower urinary tract symptoms patient is experiencing. Discussed trial of medication verses in office cystoscopy for further assessment evaluation Discussed at length lifestyle modifications to assist with lower urinary tract symptoms Discussed bladder triggers/irritants. Follow-up in 6 months with PVR; or sooner with any issues, concerns, and or questions. Orders: Orders AMB Urinalysis Automated Today Z13.9 - Encounter for screening, unspecified AMB Post Void Residual by ultrasound Today R39.9 - Unspecified symptoms and signs involving the genitourinary system Patient Instructions: The patient had an opportunity to ask questions regarding the treatment plan. All questions were answered. Physical exam, labs, and imaging were discussed and reviewed in detail. As well as risks, benefits, and discussion of treatment choices. No major barriers to understanding were identified. The patient expressed understanding and agreement with the above treatment plan. The patient was made aware they should contact our office by phone for worsening of their current condition, the appearance of new symptoms, or with any questions or concerns. Compliance is encouraged with any medications and follow up testing that is ordered. It is a privilege to be allowed the opportunity to participate in? your urological care.? Again, if you have any questions or concerns If you have any questions or concerns please do not hesitate to contact me. The office is [phone]. This note is constructed using voice recognition software. While every effort has been made to ensure accuracy maintenance representative errors may have been included. Yours sincerely, SAMEERA Blankenship Coding Level of Care Code Est Pt Level 3 (51420) Diagnoses Nocturia R35.1 Lower urinary tract symptoms R39.9 Urinary frequency R35.0 CPT Codes Post Residual Void - PVR CPT Code: 73898-Emdp Void Residual by ultrasound ([id number])
== END 2024-01-09 10:08 | disposition home or self-care (01) ==
PROVIDERS: PCP Internal Medicine; Visit Provider Nurse Practitioner Family
DX: R35.1 Nocturia (principal); R39.9 Unspecified symptoms and signs involving the genitourinary system; R35.0 Frequency of micturition; Z13.9 Encounter for screening, unspecified
CPT/HCPCS: 99213

== ENCOUNTER → 2024-01-09 09:38 | Outpatient (BNVA) | payer MEDICARE, SELFPAY | PROVIDERS: PCP Internal Medicine; Visit Provider Nurse Practitioner Family | DX: R35.1 Nocturia (principal); R39.9 Unspecified symptoms and signs involving the genitourinary system; R35.0 Frequency of micturition | CPT/HCPCS: 51798; 81003; 99212 ==

== ENCOUNTER 2024-05-24 10:22 | Outpatient (AMB) | payer MEDICARE, SELFPAY ==
[2024-05-24 10:29] VITALS: BP 156/86; PULSE 78; O2SAT 95; BMI 26.5
--- NOTE | 2024-05-24 10:29 | A.OFFPC_ITS ---
Vital Signs 05/24/24 10:29 Height 5 ft 10 in Weight 185 lb BMI 26.5 BP 156/86 H Blood Pressure Location Lt brachial Position Sitting Pulse 78 Pulse Source Pulse Oximeter Pulse Oximetry (%) 95 Oxygen Delivery Method Room Air Intake Visit Reasons: 6 month f/u Intake Note: Pt reports that he went to urgent care and was diagnosed with pneumonia. He is on his last day of doxycycline monohydrate 100 mg tablet and he was given an inhaler that he doesn't like using since it sends him into a coughing fit. He stated the antibiotics are not helping, he still is coughing and has shortness of breath. Pt also mentioned looking to discuss a cardiology referral due to irregular heartbeat. [employer] Required: No Accompanied by: Self / Same As Patient Allergies No Known Allergies Allergy (Verified 05/24/24 10:30) Medication List - Last Reconciled 05/24/24 by Moo Alcazar MD amlodipine 10 mg PO DAILY amoxicillin-pot clavulanate 500-125 mg (Augmentin) 1 tab PO BID cholecalciferol (vitamin D3) (Vitamin D3) 25 mcg PO DAILY dorzolamide-timolol 22.3-6.8 mg/mL 1 drp ophthalmic (eye) BID fexofenadine (Valentine Allergy) 60 mg PO BID hydrochlorothiazide 25 mg PO DAILY in-rz-fp2-aqr-pna-ebnk-lut-francesco 250 mg (90 mg-160 mg) (Ocuvite Adult 50 Plus) 1 cap PO DAILY omeprazole mg PO QAM vitamin B complex 1 cap PO DAILY Tobacco use date assessed: 11/16/23 Fall risk assessment: No Falls in past year Last assessed Fall Risk: 05/24/24 Dental Screening Dental Screen Date: 11/16/23 HPI 6 month f/u HPI Details HTN on Rx; doing well; compliant [facility] Medical History Hiatal hernia Tubular adenoma Glaucoma Arrhythmia Hypertension Surgical History H/O colonoscopy History of laparoscopic cholecystectomy (01/27/23) History of esophagogastroduodenoscopy (EGD) History of cataract surgery H/O rectal polypectomy History of removal of cyst Family History Father Colon cancer Mother Stroke Social History Housing: House Alcohol intake: never Patient Tobacco Use Status: Former Tobacco user Tobacco use type: Cigarette e-Cigarette/Vaping Use: Never Used Second Hand Smoke Exposure: No service: No Current occupational status: retired Cognitive needs: No Hearing needs: No Vision needs: Yes Questionnaire Thrive Questionnaire Date Thrive assessed: 11/16/23 LAILA-7 AMB Questionnaire LAILA-7 Date LAILA - 7 assessed: 11/16/23 Source: Developed by Drs. Luciano Alfred, Maya Henderson, Jesse Grullon and colleagues, with an educational emile from [employer]. Review of Systems Const Denies chills, Denies headache(s) and Denies weight loss ENT Denies headache(s) Card Denies chest pain, Denies syncope, Denies irregular heart rhythm and Denies dys pnea Resp Denies chest congestion, Denies cough and Denies dyspnea GI Denies abdominal pain, Denies change in stool character, Denies nausea and Denie s vomiting Musc Denies deformity and Denies joint swelling Neuro Denies syncope and Denies headache(s) Physical exam (Primary Care) Vital Signs: Last Vital Signs Pulse 78 05/24/24 10:29 BP 156/86 H 05/24/24 10:29 Pulse Ox 95 05/24/24 10:29 Oxygen Delivery Method Room Air 05/24/24 10:29 BMI result Body Mass Index 26.5 Tobacco/Smoking Status: Tobacco use Status Tobacco use date assessed 11/16/23 05/24/24 10:37 Patient Tobacco Use Status Former Tobacco user 05/24/24 10:37 Tobacco use type Cigarette 05/24/24 10:37 e-Cigarette/Vaping Use Never Used 05/24/24 10:37 Thrive Assessment: Date of Thrive Assessment Date Thrive assessed 11/16/23 05/24/24 10:37 Const General: cooperative, comfortable, no acute distress and alert Neck Neck: Yes no lymphadenopathy Thyroid: Thyroid normal Resp Effort & Inspection: normal respiratory effort Auscultation: clear to auscultation bilaterally Percussion: percussion normal Cardio Jugular venous distension: no JVD Palpation: normal PMI Rate: regular rate Rhythm: regular rhythm Heart sounds: S1 normal heart sound present and S2 normal heart sound present GI Inspection: Yes normal to inspection Palpation (GI): No hepatosplenomegaly present Skin General skin exam: no rashes or lesions noted Extrem General: Yes no clubbing, cyanosis or edema Coding Level of Care Code Est Pt Level 3 (08738) Diagnoses Hypertension I10 Assessment & Plan Assessment & Plan (1) Hypertension: Code(s): I10 - Essential (primary) hypertension Category: Medical Plan: stable; same rx Orders: Orders ECG 12 lead EKG Today R06.00 - Dyspnea, unspecified XR chest 2V Today J18.9 - Pneumonia, unspecified organism Medications: New amoxicillin-pot clavulanate 500-125 mg (Augmentin) 1 tab PO BID 14 tabs 0RF
== END 2024-05-24 10:46 | disposition home or self-care (01) ==
LOC: HO.HMCH 10:23
PROVIDERS: PCP Internal Medicine; Visit Provider Internal Medicine
DX: I10 Essential (primary) hypertension (principal)

== ENCOUNTER 2024-05-24 10:22 | Outpatient (REF) | payer MEDICARE, SELFPAY ==
--- NOTE | ~2024-05-24 | XR_ITS ---
EXAMINATION: XR CHEST CLINICAL INFORMATION: Cough, treated with antibiotics COMPARISON: 11/19/2020 TECHNIQUE: 2 views of the chest were obtained. FINDINGS: No focal consolidation, pulmonary edema, or pleural effusion. Stable cardiomediastinal silhouette. Healed right-sided rib fractures. XR/XR chest 2V IMPRESSION: No acute cardiopulmonary findings. Electronically signed by: Sunil Castro MD 05/24/2024 04:26 PM EDT
--- NOTE | 2024-05-24 11:20 | ECG_ITS ---
Test Reason : dyspnea Blood Pressure : / mmHG Vent. Rate : 068 BPM Atrial Rate : 068 BPM P-R Int : 168 ms QRS Dur : 102 ms QT Int : 410 ms P-R-T Axes : 044 065 040 degrees QTc Int : 435 ms Sinus rhythm with marked sinus arrhythmia Incomplete right bundle branch block Borderline ECG When compared with ECG of 19-NOV-2020 08:38, No significant changes seen Referred By: Moo Alcazar Electronically Signed By:BENITO HAMMOND
== END 2024-05-24 10:23 | disposition home or self-care (01) ==
LOC: HO.XRAY 10:22
PROVIDERS: PCP Internal Medicine; Visit Provider Internal Medicine
DX: J18.9 Pneumonia, unspecified organism (principal); R06.00 Dyspnea, unspecified; I10 Essential (primary) hypertension
CPT/HCPCS: 71046; 93005; 99212

== ENCOUNTER → 2024-05-24 11:20 | Outpatient (BNV) | payer MEDICARE, SELFPAY | PROVIDERS: PCP Internal Medicine; Visit Provider Internal Medicine | DX: I45.10 Unspecified right bundle-branch block (principal) | CPT/HCPCS: 93010 ==

== ENCOUNTER 2024-07-10 09:42 | Outpatient (AMB) | payer MEDICARE, SELFPAY ==
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
== END 2024-07-10 10:33 | disposition home or self-care (01) ==
PROVIDERS: PCP Internal Medicine; Visit Provider Nurse Practitioner Family
DX: R35.1 Nocturia (principal); R39.9 Unspecified symptoms and signs involving the genitourinary system; R35.0 Frequency of micturition; Z13.9 Encounter for screening, unspecified
CPT/HCPCS: 99213; G2211

== ENCOUNTER → 2024-07-10 09:42 | Outpatient (BNVA) | payer MEDICARE, SELFPAY | PROVIDERS: PCP Internal Medicine; Visit Provider Nurse Practitioner Family | DX: R35.1 Nocturia (principal); R35.0 Frequency of micturition; R39.9 Unspecified symptoms and signs involving the genitourinary system | CPT/HCPCS: 51798; 81003; 99212 ==

== ENCOUNTER 2024-09-25 10:32 | Outpatient (AMB) | payer MEDICARE, SELFPAY ==
[2024-09-25 10:39] VITALS: BP 126/70; PULSE 72; TEMP 36.2; O2SAT 96; BMI 27.6
--- NOTE | 2024-09-25 10:39 | A.OFFPC_ITS ---
Vital Signs 09/25/24 10:39 Height 5 ft 10 in Weight 192 lb 6 oz BMI 27.6 BP 126/70 Blood Pressure Location Lt brachial Position Sitting Pulse 72 Pulse Source Pulse Oximeter Temp 97.1 F Temp Source Temporal Artery Scan Pulse Oximetry (%) 96 Oxygen Delivery Method Room Air Intake Visit Reasons: 6 month f/u Oven Heater Helper Required: No Accompanied by: Self / Same As Patient Allergies No Known Allergies Allergy (Verified 09/25/24 10:38) Tobacco use date assessed: 09/25/24 Fall risk assessment: 1 Fall in past year Last assessed Fall Risk: 09/25/24 Dental Screening Dental Screen Date: 09/25/24 Did you have a dental visit in the last 12 months?: Yes Did you have a dental problem in the last 6 months where you did not have access to dental care?: No Was dental information given to patient?: Patient has dentist HPI 6 month f/u HPI Details HTNn on Rx; doing well and compliant [facility] Medical History Hiatal hernia Tubular adenoma Glaucoma Arrhythmia Hypertension Surgical History H/O colonoscopy History of laparoscopic cholecystectomy (01/27/23) History of esophagogastroduodenoscopy (EGD) History of cataract surgery H/O rectal polypectomy History of removal of cyst Family History Father Colon cancer Mother Stroke Social History Housing: House Alcohol intake: never Patient Tobacco Use Status: Former Tobacco user Tobacco use type: Cigarette e-Cigarette/Vaping Use: Never Used Second Hand Smoke Exposure: No service: No Current occupational status: retired Cognitive needs: No Hearing needs: No Vision needs: Yes Questionnaire PHQ-9 Over the last 2 weeks, how often have you been bothered by any of the following problems? 1. Little interest or pleasure in doing things: not at all 2. Feeling down, depressed, or hopeless: not at all 3. Trouble falling or staying asleep, or sleeping too much: not at all 4. Feeling tired or having little energy: not at all 5. Poor appetite or overeating: not at all 6. Feeling bad about yourself - or that you are a failure or have let yourself or your family down: not at all 7. Trouble concentrating on things, such as reading the newspaper or watching television: not at all 8. Moving or speaking so slowly that other people could have noticed. Or the opposite - being so fidgety or restless that you have been moving around a lot more than usual: not at all 9. Thoughts that you would be better off or of hurting yourself in some way: not at all Total score: 0 Depression Screening Interpretation: Negative Depression Screening Done: Yes 53464 - PHQ-9 Billing: Yes Source: Developed by Drs. Luciano Alfred, Maya Henderson, Jesse Gruloln and colleagues, with an educational emile from [employer]. Thrive Questionnaire Date Thrive assessed: 09/25/24 I am a: Patient What is your living situation today?: I have a steady place to live Within the past 12 months, did the food you bought not last and you didn't have the money to get more?: Never true Within the past 12 months, did you worry whether your food would run out before you got money to buy more?: Never true Do you have trouble paying for medicines?: No Do you have trouble getting transportation to medical appointments?: No Do you have trouble paying your heating and electricity bill?: No Do you have trouble taking care of your child, family member or friend?: No Do you have trouble with day-to-day activities such as bathing, preparing meals, shopping, managing finances, etc.?: No Are you currently unemployed and looking for a job?: No Are you interested in more education?: No Please select the resources that you would like help with: None Currently or been in a relationship where the following occur: No concerns reported THRIVE Score: 0 AUDIT C Alcohol Use Questionnaire (AUDIT-C) 1. How often do you have a drink containing alcohol?: Never Total Score: 0 Score Reviewed/Action Taken: Yes LAILA-7 AMB Questionnaire LAILA-7 Date LAILA - 7 assessed: 09/25/24 Feeling nervous, anxious, or on edge: 0 = Not at all Not being able to stop or control worryin = Not at all Worrying too much about different things: 0 = Not at all Trouble relaxin = Not at all Being so restless that it is hard to sit still: 0 = Not at all Becoming easily annoyed or irritable: 0 = Not at all Feeling afraid as if something awful might happen: 0 = Not at all Total LAILA-7 score (0-4 normal; 5-9 mild; 10-14 moderate; 15-21 severe): 0 Source: Developed by Drs. Luciano Alfred, Maya Henderson, Jesse Grullon and colleagues, with an educational emile from [employer]. LAILA-7 Assessment Billing LAILA-7 Assessment Tool: LAILA-7 Assessment 86647 Review of Systems Const Denies chills, Denies headache(s) and Denies weight loss ENT Denies headache(s) Card Denies chest pain, Denies syncope, Denies irregular heart rhythm and Denies dyspnea Resp Denies chest congestion, Denies cough and Denies dyspnea GI Denies abdominal pain, Denies change in stool character, Denies nausea and Denies vomiting Musc Denies deformity and Denies joint swelling Neuro Denies syncope and Denies headache(s) Physical exam (Primary Care) Vital Signs: Last Vital Signs Temp 97.1 F 09/25/24 10:39 Pulse 72 09/25/24 10:39 BP 126/70 09/25/24 10:39 Pulse Ox 96 09/25/24 10:39 Oxygen Delivery Method Room Air 09/25/24 10:39 BMI result Body Mass Index 27.6 Tobacco/Smoking Status: Tobacco use Status Tobacco use date assessed 09/25/24 09/25/24 10:48 Patient Tobacco Use Status Former Tobacco user 09/25/24 10:48 Tobacco use type Cigarette 09/25/24 10:48 e-Cigarette/Vaping Use Never Used 09/25/24 10:48 PHQ-9: PHQ-9 Score PHQ-9: Total score 0 09/25/24 10:48 Depression Screening Interpretation: Negative Thrive Assessment: Date of Thrive Assessment Date Thrive assessed 09/25/24 09/25/24 10:48 Currently or been in a relationship where the following occur: No concerns reported Const General: cooperative, comfortable, no acute distress and alert Neck Neck: Yes no lymphadenopathy Thyroid: Thyroid normal Resp Effort & Inspection: normal respiratory effort Auscultation: clear to auscultation bilaterally Percussion: percussion normal Cardio Jugular venous distension: no JVD Palpation: normal PMI Rate: regular rate Rhythm: regular rhythm Heart sounds: S1 normal heart sound present and S2 normal heart sound present GI Inspection: Yes normal to inspection Palpation (GI): No hepatosplenomegaly present Skin General skin exam: no rashes or lesions noted Extrem General: Yes no clubbing, cyanosis or edema Coding Level of Care Code Est Pt Level 3 (31632) Diagnoses Hypertension I10 Additional Codes LAILA-7 Assessment Billing - LAILA-7 Assessment Tool: LAILA-7 Assessment 00771 ([id number]) PHQ-9 - 33407 - PHQ-9 Billing: Yes ([id number]) Assessment & Plan Assessment & Plan (1) Hypertension: Code(s): I10 - Essential (primary) hypertension Category: Medical Plan: stable; same rx
--- OUTSIDE RECORDS SUMMARY | 2024-09-25 12:49 | XMS_ITS ---
Author Organization [facility] Address [address] [place] [address] Care Team Providers Care Net Programmer Analyst Name Role Phone Ottoniel LINCOLN, Moo Primary Care Provider Luciano Tran [phone] Encounters Encounter Location Date Provider Diagnosis [facility] [address] [place] [address] 07/25/2024 Luciano Munroe PLAN OF TREATMENT Next Appt Details Provider Name:Luciano Munroe , 05/28/2025 09:10:00 AM, [address] [facility], [address], [place], [address],
--- OUTSIDE RECORDS SUMMARY | 2024-09-25 12:50 | XMS_ITS ---
Author Organization [facility] Address [address] [place] [address] Care Team Providers Care Beater Boss Name Role Phone Ottoniel LINCOLN, Moo Primary Care Provider Luciano Tran Unavailable [phone] REASON FOR VISIT screening, hx polyps,fam hx colon ca PROBLEMS Problem Type ICD Code Onset Dates Problem Status W/U Status Risk SNOMED Code Notes Problem Personal history of colonic polyps (Z86.010) Active confirmed History of polyp of colon (situation) (864008453) Problem Diverticulosis of large intestine without perforation or abscess without bleeding (K57.30) Active confirmed Diverticul ar disease of colon ([id number]) Encounters Encounter Location Date Provider Diagnosis [facility] [address] [place] [phone] 12/28/2023 Luciano Munroe Encounter for scre ening colonoscopy Z12.11 ; Personal history of colonic polyps Z86.010 ; Diverticulosis of large intestine without perforation or abscess without bleeding K57.30 and Internal hemorrhoids K64.8 ASSESSMENTS Encounter Date Diagnosis Assessment Notes Treatment Notes Treatment Clinical Notes 12/28/2023 Encounter for screening colonoscopy (ICD-10 - Z12.11) 12/28/2023 Personal history of colonic polyps (ICD-10 - Z86.010) 12/28/2023 Diverticulosis of large intestine without perforation or abscess without bleeding (ICD-10 - K57.30) 12/28/2023 Internal hemorrhoids (ICD-10 - K64.8) PLAN OF TREATMENT Next Appt Details Provider Name:Luciano Munroe , 05/28/2025 09:10:00 AM, [address] [place] [address], [address], [place], [address],
--- OUTSIDE RECORDS SUMMARY | 2024-09-25 12:50 | XMS_ITS | Patient Health Record ---
Author Organization [facility] Address [address] [place] [address] Care Team Providers Care Magnet Valve Assembler Name Role Phone Moo Alcazar MD Primary Care Provider Luciano Tran [phone] ALLERGIES No Known Allergies RESULTS Component Value Reference Range Notes Blood Urea Nitrogen Reviewed date:12/14/2023 05:26:48 PM Interpretation: Performing Lab:[facility], [address] [place] [phone] Notes/Report: Blood Urea Nitrogen 15 9-16 mg/dL Creatinine Reviewed date:12/14/2023 05:26:55 PM Interpretation: Performing Lab:[facility], [address] [place] [phone] Notes/Report: Creatinine 0.93 0.5-1.4 mg/dL Estimated Glomerular Filt Rate > 60 NOTE: For -[place] individuals, multiply the result by 1.210. Chronic Kidney Disease: Estimated GFR < 60 mL/min/1.73m2 Severe Kidney Disease: Estimated GFR < 15 mL/min/1.73m2 Carbohydrate Antigen 19-9 Reviewed date:12/15/2023 09:12:23 AM Interpretation: Performing Lab:[address] [address] Notes/Report: Carbohydrate Antigen 19-9 8 <34 U/mL This test was performed using the Siemens chemiluminescent method. Values obtained from different assay methods cannot be used interchangeably. CA 19-9 levels, regardless of value, should not be interpreted as absolute evidence of the presence or absence of disease. THIS TEST WAS PERFORMED AT: [facility] [address] [place] [phone] HUSSAIN GUAN MD MR abdomen wo/w con Reviewed date:07/25/2024 10:53:53 PM Interpretation: Performing Lab: Notes/Report: [address] [address] Magnetic Resonance Report Signed Patient: Noemi Whittingotn MR#: [id number] : 1945 Acct:[id number] Age/Sex: 78 / M ADM Date: 12/21/23 Loc: HO.MRI Attending Dr: Luciano Munroe MD Ordering Physician: Luciano Munroe Date of Service: 12/21/23 Procedure(s): MR abdomen wo/w con Accession Number(s): [id number] cc: Moo Alcazar MD; Luciano Munroe EXAMINATION: MR ABDOMEN WITHOUT AND WITH CONTRAST MR CHOLANGIOPANCREATOGRAPHY CLINICAL INFORMATION: Intraductal papillary mucinous neoplasm, follow-up COMPARISON: MRI abdomen on 12/22/2022 TECHNIQUE: Examination was performed in a high field strength MRI scanner. Multiplanar multisequence MR imaging of the abdomen was performed without IV contrast enhancement. Multiphasic Axial T1-weighted fat-suppressed images of the upper abdomen were obtained after IV injection of 9 mL Gadavist. Coronal T1-weighted fat-suppressed images of the abdomen were obtained following the dynamic axial series. MR cholangiopancreatography was performed with heavily T2 weighted sequences. 3-dimensional reconstruction of image data was performed. This was performed under concurrent direct supervision and monitoring by radiologist. Maximum intensity projection images were constructed. FINDINGS: MR CHOLANGIOPANCREATOGRAPHY: Gallbladder is surgically absent. Bilateral intra hepatic bile ducts, common hepatic duct and common bile duct are normal in size without filling defects. Pancreatic duct is normal in size. There is connection between the largest pancreatic uncinate process cyst with the main pancreatic duct through a branch duct. The pancreatic head cyst also shows collection with the main pancreatic duct. Much smaller cystic lesions are seen in the proximal and distal pancreatic body, measuring up to 0.6 cm in diameter without definite connection without pancreatic duct. LIVER: The liver contains multiple T2 hyperintense nonenhancing simple cysts. The largest cyst is found at lateral anterior capsular border of right hepatic lobe segment 6 measuring 1.3 cm in diameter. The largest left hepatic lobe simple cyst is found in anterior border of segment 3 measuring 1.2 cm in diameter. The calculated hepatic fat percentage is 18.0%, compatible with moderate hepatic steatosis. PANCREAS: A T2 hyperintense nonenhancing cystic lesion is seen at superior border of pancreatic head, measuring 0.6 cm in diameter (previously 0.5 cm), series 6 image #19, series 5 image #28. Unchanged similar T2 hyperintense nonenhancing cystic lesion is seen at the medial border of pancreatic uncinate process, measuring 0.88 cm in diameter (previously 0.8 cm), series 6 image #29, series 5 image #26. SPLEEN: Spleen is normal in size without focal lesion. ADRENAL: Bilateral adrenal glands are normal in shape and size. KIDNEYS: Bilateral kidneys are normal in size without focal lesion. Advanced L4-L5 and L5-S1 degenerative lumbar disc disease and mild posterior disc protrusion are seen. MR/MR abdomen wo/w con IMPRESSION: 1. Interval performance of cholecystectomy. 2. Moderate hepatic steatosis. 3. Unchanged Multiple hepatic simple cysts. 4. 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 Follow-up pre and postcontrast MRI of abdomen with MRCP sequence every 2 years x5 or 10 to patient reaches age of 80 are recommended by [place] [employer]. 5. Advanced L4-L5 and L5-S1 degenerative lumbar disc disease and mild posterior disc protrusion. Dictated By: Luca Alves Signed By: <Electronically signed by Luca Alves in OV> 01/02/24 1752 DD/ 0907 TD/TT: Electrical Sign Wirer: REASON FOR REFERRAL No Information MEDICATIONS Medication SIG (Take, Route, Frequency, Duration) Notes Start Date End Date Status Vitamin B Complex - as directed Orally Active Ocuvite Adult 50+ - as directed Orally Active Cosopt 22.3-6.8 MG/ML 1 drop into affected eye Ophthalmic Twice a day Active amLODIPine Besylate 10 MG 1 tablet Orall y Once a day Active hydroCHLOROthiazide 25 MG 1 capsule in t he morning Orally Once a day Active Omeprazole 20 MG 1 Orally Once a day every morning for 30 day(s) He will stop the 40mg omeprazole once he starts the 20mg Rx. Please remind him. Thanks very much 11/22/2023 Active Omeprazole 40 MG TAKE ONE CAPSULE BY MOUTH EVERY MORNING. for 30 Active Valentine Active Saw Alford 500 MG as directed Orally Active Vitamin D 1000 UNIT 1 tablet Orally Once a day for 30 day(s) Active IMMUNIZATIONS Vaccine Route Administration Date Status Comme nts Influenza Unknown 03/25/2018 Administered SOCIAL HISTORY Sex Assigned At : Social History Observation Description Sex Assigned At Unknown Alcohol Screen Question Answer Notes Did you have a drink containing alcohol in the p ast year? No Points 0 Interpretation Negative PROBLEMS Problem Type ICD Code Onset Dates Problem Status W/U Status Risk SNOMED Code Notes Problem Epigastric pain (R10.13) Active confirmed 88312298 Problem Encounter for screening for malignant neoplasm of colon (Z12.11) Active confirmed 066663392 Problem Personal history of colonic polyps (Z86.010) Active confirmed History of poly p of colon (situation) (613883563) Problem Weight loss (R63.4) Active confirmed 75366726 Problem Diverticulosis of large intestine without perforation or abscess without bleeding (K57.30) Active confirmed Diverticul ar disease of colon (558015675) Problem Nausea (R11.0) Active confirmed 7284313 07 Problem Gastroesophageal reflux disease without esophagitis (K21.9) Active confirmed Gastroesophagea l reflux disease without esophagitis (147357783) Problem Preprocedural examination (Z01.818) Active confirmed 302276571020888 Problem Family history of colon cancer (Z80.0) Active confirmed 261289978 Problem Gallstones (K80.20) Active confirmed 737103286 Problem Hx of adenomatous colonic polyps (Z86.010) Active confirmed 091736160 Problem Long-term use of high-risk medication (Z79.899) Active confirmed 686312956 Problem 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) Active confirmed 570290391 Problem Abnormal ultrasound of abdomen (R93.5) Active confirmed 72977068263903193 Problem 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) Active confirmed 76305332 VITAL SIGNS Blood pressure diastolic 00 mm Hg 11/22/2023 Height 70 in 11/22/2023 Blood pressure systolic 00 mm Hg 11/22/2023 Weight 192 lbs 11/22/2023 BMI 27.55 kg/m2 11/22/2023 Encounters Encounter Location Date Provider Diagnosis [facility] Outpatient [address] [place] [address] [place] [id number] 12/28/2023 Luciano Munroe Encounter for screen ing colonoscopy Z12.11 ; Personal history of colonic polyps Z86.010 ; Diverticulosis of large intestine without perforation or abscess without bleeding K57.30 and Internal hemorrhoids K64.8 [facility] [address] [place] [address] 11/22/2023 Luciano Munroe Hx of adenomatous colonic polyps Z86.010 ; Gastroesophageal reflux disease without esophagitis K21.9 ; Encounter for screening for malignant neoplasm of colon Z12.11 ; Family history of colon cancer Z80.0 and IPMN (intraductal papillary mucinous neoplasm) D49.0 [facility] [address] [place] [address] 01/01/2024 Luciano Munroe [facility] [address] [place] [address] 07/25/2024 Luciano Ludwig ASSESSMENTS Encounter Date Diagnosis Assessment Notes Treatment Notes Treatment Clinical Notes 12/28/2023 Encounter for screening colonoscopy (ICD-10 - Z12.11) 12/28/2023 Personal history of colonic polyps (ICD-10 - Z86.010) 11/22/2023 Gastroesophageal reflux disease without esophagitis (ICD-10 - K21.9) Decrease the omeprazole to 20mg. I will send over a new prescription. You can always go back to the 40mg if need be. 11/22/2023 Hx of adenomatous colonic polyps (ICD-10 - Z86.010) 12/28/2023 Diverticulosis of large intestine without perforation or abscess without bleeding (ICD-10 - K57.30) 11/22/2023 Encounter for screening for malignant neoplasm of colon (ICD-10 - Z12.11) Don't take the HCTZ diuretic the day before nor on the day of the colonoscopy 12/28/2023 Internal hemorrhoids (ICD-10 - K64.8) 11/22/2023 Family history of colon cancer (ICD-10 - Z80.0) 11/22/2023 IPMN (intraductal papillary mucinous neoplasm) (ICD-10 - D49.0) PLAN OF TREATMENT Pending Test Test Name Order Date BUN 11/17/2022 BUN 11/22/2023 LIVER PROFILE 11/17/2022 CA 19-9 11/17/2022 CA 19-9 11/22/2023 MRI ABD NO CONTRAST (MRCP) 11/17/2022 MRI ABD W&WO CONTRAST 11/17/2022 MRI ABD W&WO CONTRAST 11/22/2023 US ABD 10/26/2022 Creatinine 11/17/2022 Creatinine 11/22/2023 Amylase 11/17/2022 Lipase 11/17/2022 Future Test Test Name Order Date COLONOSCOPY 06/19/2013 COLONOSCOPY 09/28/2018 UPPER GI ENDOSCOPY 10/26/2022 COLONOSCOPY 11/22/2023 Next Appt Details Provider Name:Luciano Munroe , 05/28/2025 09:10:00 AM, [address] [facility], [address], [place], [address], Insurance Providers Payer Name Payer Address Payer Phone Subscriber Number Group Number Insured Name Patient Relationship to Insured Coverage Start Date Coverage End Date [employer] Medicare Advantage Plan [address] [address] [place] [address] [phone] [id number] NOEMI WHITTINGTON Self - patient is the insured MEDICAL (GENERAL) HISTORY Medical History History ICD Code GERD--EGD in 11/2007--small HH-no Piedra 's Glaucoma Tubular adenomas removed in 1999 and 11/2007; colonoscopy in 06/2013 was neg. except for hyperplastic polyps; colonoscopy 10/2018 with a small tubular adenoma removed and a hyperplastic polyp HTN Denies WA,DM,CVA,Lung disease,renal dise ase Gout 2021 Upper endoscopy 10/2022 revea led a small hiatal hernia. There was no esophagitis or Piedra's esophagus. Duodenal biopsies were negative for celiac disease. Gastric biopsies were negative for H. pylori. Gallstones--he is having a cholecystecto my on 01/27/[address] Shetty Ultrasound of the abdomen re vealed gallstones and a borderline dilated pancreatic duct. MRI of the abdomen revealed benign appearing pancreatic cysts consistent with IPMN. 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
--- OUTSIDE RECORDS SUMMARY | 2024-09-25 12:50 | XMS_ITS ---
Author Organization [facility] Address [address] [place] [address] Care Team Providers Care Shower Doors And Panels Fabricator Name Role Phone Ottoniel LINCOLN, Moo Primary Care Provider Unavaila Luciano Rothman Unavailable [phone] REASON FOR VISIT Need 12/20 MRI report Encounters Encounter Location Date Provider Diagnosis [facility] [address] [place] [address] 01/01/2024 Luciano Munroe PLAN OF TREATMENT Next Appt Details Provider Name:Luciano Munroe , 05/28/2025 09:10:00 AM, [address], [address], [place], [address],
== END 2024-09-25 10:58 | disposition home or self-care (01) ==
PROVIDERS: PCP Internal Medicine; Visit Provider Internal Medicine
DX: I10 Essential (primary) hypertension (principal)

== ENCOUNTER → 2024-09-25 10:32 | Outpatient (BNVA) | payer MEDICARE, SELFPAY | PROVIDERS: PCP Internal Medicine; Visit Provider Internal Medicine | DX: I10 Essential (primary) hypertension (principal) | CPT/HCPCS: 96127; 99212 ==

== ENCOUNTER 2024-12-28 08:03 | Outpatient (REF) | payer MEDICARE, SELFPAY ==
--- OUTSIDE RECORDS SUMMARY | 2024-12-28 08:07 | XMS_ITS ---
Author Organization [facility] Address [address] [place] [address] Care Team Providers Care Surgical Instrument Repair Specialist Name Role Phone Ottoniel LINCOLN, Moo Primary Care Provider Luciano Tran [phone] Encounters Encounter Location Date Provider Diagnosis [facility] [address] [facility] [address] [place] [address] 07/25/2024 Luciano Munroe Plan Of Treatment Next Appt Details Provider Name:Luciano Munroe , 05/28/2025 09:10:00 AM, [address] [facility], [address], [place], [address], Progress Notes * NOEMI DOBBSDOB:[birth year] (78 yo M)Acc No.[id number]:07/25/2024 Patient:?NOEMI DOBBS :1945???Age:78 Y???Sex:Male Address:[address], [place] [address] * true * Date:? Generated for Shanei kristina/Rosalia/eTransmitting on:?12/28/2024 08:06 AM EDT
== END 2024-12-28 08:04 | disposition home or self-care (01) ==
LOC: HO.LAB 08:03
PROVIDERS: PCP Internal Medicine; Visit Provider Nurse Practitioner Family
DX: R35.0 Frequency of micturition (principal); R39.9 Unspecified symptoms and signs involving the genitourinary system; R35.1 Nocturia; Z12.5 Encounter for screening for malignant neoplasm of prostate
CPT/HCPCS: 36415; 84153

== ENCOUNTER 2025-01-08 08:43 | Outpatient (AMB) | payer MEDICARE, SELFPAY ==
--- NOTE | 2025-01-08 08:52 | MHC.OFFVIS ---
Intake Visit Reasons: 6M f/u PSA/PVR(set) Intake Note: Patient presents for 6m follow up/PSA/PVR Urology Medications: none Blood Thinner: none PVR: 43ml Community Director Required: No Accompanied by: Self / Same As Patient Allergies No Known Allergies Allergy (Verified 01/08/25 09:24) Medication List - Last Reconciled 01/08/25 by SUSIE BlankenshipP- amlodipine 10 mg PO DAILY cholecalciferol (vitamin D3) (Vitamin D3) 25 mcg PO DAILY dorzolamide-timolol 22.3-6.8 mg/mL 1 drp ophthalmic (eye) BID fexofenadine (Valentine Allergy) 60 mg PO BID hydrochlorothiazide 25 mg PO DAILY um-os-fa8-lxd-zyz-flbd-lut-francesco 250 mg (90 mg-160 mg) (Ocuvite Adult 50 Plus) 1 cap PO DAILY omeprazole mg PO QAM vitamin B complex 1 cap PO DAILY HPI Comments Details: Toby is a very pleasant 79-year-old male patient of Dr. Alcazar. He has a past medical history of arrhythmia, GERD, peripheral vascular disease, and hypertension. He presents to the office today for a follow up of his lower urinary tract symptoms. In discussion with the patient today he reports he continues with episodes of urinary urgency, urinary frequency and nocturia however he does continue to feel he is self managing his symptoms as we did discussed at length potential causes of these lower urinary tract symptoms and further treatment options and risks and benefits of these treatment options. In office urinalysis results were reviewed with the patient today. PH 5.0. We did discussed the importance of adequate hydration relation to lower urinary tract symptoms as well as overall health and well-being. Recent PSA results were reviewed with the patient today as noted and trended below. He otherwise denies hematuria, dysuria, foul smelling urine, changes to urinary stream, flank pain, fever, and or chills. Previous workup has included bladder ultrasound 07/16 noting the bladder is well distended. Bilateral ureteral jets are demonstrated. Pre void bladder volume is approximately 410 mL. Postvoid bladder volume is approximately 80 mL. The prostate volume is approximately 34 mL. PSAs are as follows: 06/11 2.0, 04/12 1.6, 11/13 2.2, 07/16 1.7, 11/15 3.2, 01/16 1.9 He does continue to report lower urinary tract symptoms. However he does not feel the symptoms are bothersome enough at this time for further intervention with medication and or cystoscopy for further assessment evaluation. Discussed limiting fluids 2-3 hours prior to bed to assist with decreasing episodes of nocturia as well as avoiding bladder triggers and irritants. PVR 43ml's. Discussed at length potential causes for lower urinary tract symptoms patient is experiencing. Patient otherwise denies any issues or concerns at this time. BHARATHI offered however deferred. [facility] Medical History Hiatal hernia Tubular adenoma Glaucoma Arrhythmia Hypertension Surgical History H/O colonoscopy History of laparoscopic cholecystectomy (01/27/23) History of esophagogastroduodenoscopy (EGD) History of cataract surgery H/O rectal polypectomy History of removal of cyst Family History Father Colon cancer Mother Stroke Social History Housing: House Alcohol intake: never Patient Tobacco Use Status: Former Tobacco user Tobacco use type: Cigarette e-Cigarette/Vaping Use: Never Used Second Hand Smoke Exposure: No service: No Current occupational status: retired Cognitive needs: No Hearing needs: No Vision needs: Yes Review of Systems Const Reports as per HPI Eyes Reports no additional complaints ENT Reports no additional complaints Card Reports as per HPI Resp Reports no additional complaints GI Reports as per HPI Reports as per HPI Musc Reports as per HPI Neuro Reports no additional complaints Psych Reports no additional complaints Endo Reports no additional complaints Physical Exam Const General: cooperative, healthy appearing, comfortable, no acute distress, well developed, alert and awake Orientation/consciousness: patient oriented x3 Limitations: no limitations HEENT Head: Yes normal to inspection, Yes normocephalic and Yes atraumatic Ears: hearing grossly normal bilaterally Eyes General: appearance normal, both eyes and all related structures Neck Neck: Yes normal visual inspection and Yes trachea midline Chest Chest palpation & inspection: normal inspection of the chest Resp Effort & Inspection: normal respiratory effort and able to speak in complete sentences Cardio Rate: regular rate GI Inspection: Yes normal to inspection General: Yes no CVA tenderness Back/Spine/Pelvis Back: no CVA tenderness Skin General skin exam: no rashes or lesions noted Neuro General: patient oriented x3 Extrem General: Yes normal to inspection Psych Appearance: grossly normal and well kempt Mental Status: mental status grossly normal Speech and movement: Normal speech and movement present and Clear speech present Affect: normal affect Attitude: cooperative Thought process: Normal thought process present Thought content: Normal thought content present Insight: Fair insight present (Psych) Judgement: Fair judgement present (Psych) Results AMB Urinalysis, Automated UA Leukoctes 0 Inge/uL Last Edit by Tala Rodriguez on 01/08/25 09:01 UA Nitrite Negative Last Edit by Tala Rodriguez on 01/08/25 09:01 UA Urobilinogen 3.5 mg/dL Last Edit by Tala Rodriguez on 01/08/25 09:01 UA Protein 1 mg/dL Last Edit by Tala Rodriguez on 01/08/25 09:01 UA pH 5.0 Last Edit by Tala Rodriguez on 01/08/25 09:01 UA Blood 0 Ortega/uL Last Edit by Tala Rodriguez on 01/08/25 09:01 UA Specific Gifford 1.020 Last Edit by Tala Rodriguez on 01/08/25 09:01 UA Ketone Negative Last Edit by Tala Rodriguez on 01/08/25 09:01 UA Bilirubin 0 mg/dL Last Edit by Tala Rodriguez on 01/08/25 09:01 UA Glucose 0 mg/dL Last Edit by Tala Rodriguez on 01/08/25 09:01 Results Reviewed Results Reviewed: Laboratory Last Values Urine pH (Auto) 5.0 01/08/25 08:19 Specific Gifford (Auto) 1.020 01/08/25 08:19 Urine Protein (Auto) 1 mg/dL 01/08/25 08:19 Glucose (UA)(Auto) 0 mg/dL 01/08/25 08:19 Urine Ketones (Auto) Negative 01/08/25 08:19 Urine Blood (Auto) 0 Ortega/uL 01/08/25 08:19 Urine Nitrite (Auto) Negative 01/08/25 08:19 Urine Bilirubin (Auto) 0 mg/dL 01/08/25 08:19 Urine Urobilinogen (Auto) 3.5 mg/dL 01/08/25 08:19 Leukocyte Esterase (Auto) 0 Inge/uL 01/08/25 08:19 Assessment & Plan Assessment & Plan (1) Nocturia: Code(s): R35.1 - Nocturia Category: Medical (2) Lower urinary tract symptoms: Code(s): R39.9 - Unspecified symptoms and signs involving the genitourinary system Category: Medical (3) Urinary frequency: Code(s): R35.0 - Frequency of micturition Category: Medical Plan In office urinalysis results reviewed with the patient today; as noted above. PVR 43 mL. Recent PSA results reviewed with the patient today; as noted above. Will continue with surveillance monitoring of lower urinary tract symptoms as patient does feel he is self managing. We did discussed further treatment options of lower urinary tract symptoms and risks and benefits of these treatment options. We discussed bladder triggers/irritants. We discussed the importance of limiting fluids 2-3 hours prior to bed to decrease episodes of nocturia. Follow-up in 6 months with PVR; or sooner with any issues, concerns, and or questions. Orders: Orders AMB Urinalysis Automated Today Z13.9 - Encounter for screening, unspecified AMB Post Void Residual by ultrasound Today R39.9 - Unspecified symptoms and signs involving the genitourinary system Patient Instructions: The patient had an opportunity to ask questions regarding the treatment plan. All questions were answered. Physical exam, labs, and imaging were discussed and reviewed in detail. As well as risks, benefits, and discussion of treatment choices. No major barriers to understanding were identified. The patient expressed understanding and agreement with the above treatment plan. The patient was made aware they should contact our office by phone for worsening of their current condition, the appearance of new symptoms, or with any questions or concerns. Compliance is encouraged with any medications and follow up testing that is ordered. It is a privilege to be allowed the opportunity to participate in? your urological care.? Again, if you have any questions or concerns If you have any questions or concerns please do not hesitate to contact me. The office is [phone]. This note is constructed using voice recognition software. While every effort has been made to ensure accuracy pedicab driver errors may have been included. Yours sincerely, SAMEERA Blankenship Coding Level of Care Code Est Pt Level 3 (26641) Complex EM visit Add On G2211 Diagnoses Nocturia R35.1 Lower urinary tract symptoms R39.9 Urinary frequency R35.0
--- OUTSIDE RECORDS SUMMARY | 2025-01-08 09:07 | XMS_ITS ---
Author Organization [facility] Address [address] [place] [address] Care Team Providers Care Continuous Improvement Analyst Name Role Phone Ottoniel LINCOLN, Moo Primary Care Provider Luciano Tran [phone] Encounters Encounter Location Date Provider Diagnosis [facility] [address] [place] [address] 07/25/2024 Luciano Munroe Plan Of Treatment Next Appt Details Provider Name:Luciano Munroe , 05/28/2025 09:10:00 AM, [address] [facility], [address], [place], [address], Progress Notes * NOEMI DOBBSDOB:[birth year] (78 yo M)Acc No.[id number]:07/25/2024 Patient:?NOEMI DOBBS :1945???Age:78 Y???Sex:Male Address:[address], [place] [address] * true * Date:? Generated for Printi kristina/Rosalia/eTransmitting on:?01/08/2025 09:06 AM EDT
== END 2025-01-08 09:19 | disposition home or self-care (01) ==
LOC: HO.HUSH 08:44
PROVIDERS: PCP Internal Medicine; Visit Provider Nurse Practitioner Family
DX: R35.1 Nocturia (principal); R39.9 Unspecified symptoms and signs involving the genitourinary system; R35.0 Frequency of micturition; Z13.9 Encounter for screening, unspecified
CPT/HCPCS: 99213; G2211

== ENCOUNTER → 2025-01-08 08:43 | Outpatient (BNVA) | payer MEDICARE, SELFPAY | PROVIDERS: PCP Internal Medicine; Visit Provider Nurse Practitioner Family | DX: R35.1 Nocturia (principal); R39.9 Unspecified symptoms and signs involving the genitourinary system; R35.0 Frequency of micturition | CPT/HCPCS: 81003; 99212 ==

== ENCOUNTER 2025-04-01 08:48 | Outpatient (AMB) | payer MEDICARE, SELFPAY ==
--- OUTSIDE RECORDS SUMMARY | 2023-12-28 07:30 | XMS_ITS ---
Author Organization [facility] Address [address] [place] [address] Care Team Providers Care Oil Truck Driver Name Role Phone Ottoniel LINCOLN, Moo Primary Care Provider Luciano Tran Unavailable [phone] REASON FOR VISIT screening, hx polyps,fam hx colon ca Problems Problem Type SNOMED Code ICD Code Onset Dates Problem Status W/U Status Risk Notes Problem History of polyp of colon (situation) (938457747) Personal history of colonic polyps (Z86.010) Active confirmed Problem Diverticular disease of colon (464849490) Diverticulosis of large intestine without perforation or abscess without bleeding (K57.30) Active confirmed Encounters Encounter Location Date Provider Diagnosis [facility] Outpatient [address] [place], [place] [id number] 12/28/2023 Luciano Munroe Encounter for scre ening colonoscopy Z12.11 ; Personal history of colonic polyps Z86.010 ; Diverticulosis of large intestine without perforation or abscess without bleeding K57.30 and Internal hemorrhoids K64.8 Assessments Encounter Date Diagnosis (ICD Code) Assessment Notes Treatment Notes Treatment Clinical Notes Section Notes 12/28/2023 Encounter for screening colonoscopy (ICD-10 - Z12.11) 12/28/2023 Personal history of colonic polyps (ICD-10 - Z86.010) 12/28/2023 Diverticulosis of large intestine without perforation or abscess without bleeding (ICD-10 - K57.30) 12/28/2023 Internal hemorrhoids (ICD-10 - K64.8) Plan Of Treatment Next Appt Details Provider Name:Luciano Munroe , 05/28/2025 09:10:00 AM, [address], [address], [place], [address], Progress Notes * NOEMI DOBBSDOB:[birth year] (79 yo M)Acc No.[id number]:12/28/2023 COLON WITH MAC Patient: NOEMI COTTRELL Provider: Claudia Munroe MD :1945 A ge:78 Y S ex:Male Date:12/28/2023 Address:[address] [place] [address], [id number] Pcp:Moo Alcazar MD Subjective: * Chief Complaints: * 1 . Screening, hx polyps,fam hx colon ca. * Medical History: Objective: * Vitals: Assessment: * Assessment: 1. E ncounter for screening colonoscopy - Z12.11 (Primary) 2 . P ersonal history of colonic polyps - Z86.010 3 . D iverticulosis of large intestine without perforation or abscess without bleeding - K57.30 4 . I nternal hemorrhoids - K64.8 Plan: * Treatment: * Procedure Codes: G 0105 COLOREC CANCR SCR; COLNSCPY HI RISK, 0529F INTRVL 3+YRS PTS CLNSCP DOCD, Modifiers: 8P , 0528F RCMND FLW-UP 10 YRS DOCD, Modifiers: 1P * Preventive Medicine: MAITE Screening: C olonoscopy W as interval between colonoscopies three years or more? Y es, W as last colonoscopy performed three or more years ago? Y es. * * The named appointment provid er may or may not be the originator of this progress note, and it is not deemed complete until electronically signed by the appointment provider. Sign off status: Pending * Provider: Claudia Munroe MD Date: 0 12/28/2023 Generated for Rodriguez acevedo/Rosalia/Ceasaritting on: 0 04/01/2025 09:50 AM EDT
[2025-04-01 08:50] VITALS: BP 130/82; PULSE 65; O2SAT 97; BMI 27.5
--- NOTE | 2025-04-01 08:50 | MHC.PC.OV ---
Vital Signs 04/01/25 08:50 Height 5 ft 10 in Weight 191 lb 8 oz BMI 27.5 BP 130/82 Blood Pressure Location Lt brachial Position Sitting Pulse 65 Pulse Source Pulse Oximeter Pulse Oximetry (%) 97 Oxygen Delivery Method Room Air Intake Visit Reasons: MARIYA from Dr. Alcazar/6M follow up [employer] [employer] Required: No Accompanied by: Self / Same As Patient Allergies No Known Allergies Allergy (Verified 04/01/25 09:23) Medication List - Last Reconciled 04/01/25 by Geovanni London MD amlodipine 10 mg PO DAILY cholecalciferol (vitamin D3) (Vitamin D3) 25 mcg PO DAILY dorzolamide-timolol 22.3-6.8 mg/mL 1 drp ophthalmic (eye) BID fexofenadine (Valentine Allergy) 60 mg PO BID hydrochlorothiazide 25 mg PO DAILY [id number]-[id number]-lah-zdbl-lut-francesco 250 mg (90 mg-160 mg) (Ocuvite Adult 50 Plus) 1 cap PO DAILY omeprazole 20 mg PO QAM vitamin B complex 1 cap PO DAILY Tobacco use date assessed: 04/01/25 Fall risk assessment: No Falls in past year Last assessed Fall Risk: 04/01/25 Dental Screening Dental Screen Date: 04/01/25 Did you have a dental visit in the last 12 months?: Yes Did you have a dental problem in the last 6 months where you did not have access to dental care?: No Was dental information given to patient?: Patient has dentist HPI MARIYA from Dr. Alcazar/6M follow up HPI Details Patient comes in today for his follow up visit - is transferring over from Dr. Alcazar, who retired from the practice a few months ago Patient states that he feels okay He denies any dizziness but reports (+) on and off headaches that are relieved with OTC Aspirin Denies any chest pains, no increased SOB No nausea/vomiting, no abdominal pain No change in bowel habits noted [facility] Medical History (Updated 04/01/25 @ 09:55 by Geovanni London MD) Overweight (BMI 25.0-29.9) Pancreatic cyst Vitamin D deficiency Elevated LFTs Essential hypertension Hiatal hernia Tubular adenoma Glaucoma Arrhythmia Surgical History H/O colonoscopy History of laparoscopic cholecystectomy (01/27/23) History of esophagogastroduodenoscopy (EGD) History of cataract surgery H/O rectal polypectomy History of removal of cyst Family History Father Colon cancer Mother Stroke Social History Housing: House Alcohol intake: never Patient Tobacco Use Status: Former Tobacco user Tobacco use type: Cigarette e-Cigarette/Vaping Use: Never Used Second Hand Smoke Exposure: No service: No Current occupational status: retired Cognitive needs: No Hearing needs: No Vision needs: Yes Questionnaire PHQ-9 Over the last 2 weeks, how often have you been bothered by any of the following problems? 1. Little interest or pleasure in doing things: not at all 2. Feeling down, depressed, or hopeless: not at all 3. Trouble falling or staying asleep, or sleeping too much: not at all 4. Feeling tired or having little energy: not at all 5. Poor appetite or overeating: not at all 6. Feeling bad about yourself - or that you are a failure or have let yourself or your family down: not at all 7. Trouble concentrating on things, such as reading the newspaper or watching television: not at all 8. Moving or speaking so slowly that other people could have noticed. Or the opposite - being so fidgety or restless that you have been moving around a lot more than usual: not at all 9. Thoughts that you would be better off or of hurting yourself in some way: not at all Total score: 0 Depression Screening Interpretation: Negative Depression Screening Done: Yes 90697 - PHQ-9 Billing: Yes Source: Developed by Drs. Luciano Alfred, Maya Henderson, Jesse Grullon and colleagues, with an educational emile from [employer]. Thrive Questionnaire Date Thrive assessed: 04/01/25 I am a: Patient What is your living situation today?: I have a steady place to live Within the past 12 months, did the food you bought not last and you didn't have the money to get more?: Never true Within the past 12 months, did you worry whether your food would run out before you got money to buy more?: Never true Do you have trouble paying for medicines?: No Do you have trouble getting transportation to medical appointments?: No Do you have trouble paying your heating and electricity bill?: No Do you have trouble taking care of your child, family member or friend?: No Do you have trouble with day-to-day activities such as bathing, preparing meals, shopping, managing finances, etc.?: No Are you currently unemployed and looking for a job?: I choose not to answer this question Are you interested in more education?: No Please select the resources that you would like help with: None Currently or been in a relationship where the following occur: No concerns reported THRIVE Score: 0 AUDIT C Alcohol Use Questionnaire (AUDIT-C) 1. How often do you have a drink containing alcohol?: Never 3. How often do you have six or more drinks on one occasion?: Never Total Score: 0 Score Reviewed/Action Taken: Yes LAILA-7 AMB Questionnaire LAILA-7 Date LAILA - 7 assessed: 04/01/25 Feeling nervous, anxious, or on edge: 0 = Not at all Not being able to stop or control worryin = Not at all Worrying too much about different things: 0 = Not at all Trouble relaxin = Not at all Being so restless that it is hard to sit still: 0 = Not at all Becoming easily annoyed or irritable: 0 = Not at all Feeling afraid as if something awful might happen: 0 = Not at all Total LAILA-7 score (0-4 normal; 5-9 mild; 10-14 moderate; 15-21 severe): 0 Source: Developed by Drs. Luciano Alfred, Maya Henderson, Jesse Grullon and colleagues, with an educational emile from [employer]. Review of Systems Const Denies chills, Denies fatigue, Denies fever(s) and Denies headache(s) ENT Denies dysphagia, Denies dizziness, Denies otalgia, Denies headache(s), Reports hearing loss (in the right ear), Denies neck pain, Denies odynophagia and Denies sore throat Card Denies chest pain, Denies palpitations and Denies dyspnea Resp Denies chest congestion, Denies cough and Denies dyspnea GI Denies abdominal pain, Denies constipation, Denies dysphagia, Denies heartburn, Denies diarrhea, Denies nausea, Denies odynophagia and Denies vomiting Denies difficulty urinating, Denies dysuria, Denies nocturia and Denies urinary frequency Musc Reports back pain (on and off) and Denies neck pain Skin/Breast Denies rash Neuro Denies dizziness and Denies headache(s) Endo Denies fatigue and Denies palpitations Physical exam (Primary Care) Vital Signs: Last Vital Signs Pulse 65 04/01/25 08:50 BP 130/82 04/01/25 08:50 Pulse Ox 97 04/01/25 08:50 Oxygen Delivery Method Room Air 04/01/25 08:50 BMI result Body Mass Index 27.5 Tobacco/Smoking Status: Tobacco use Status Tobacco use date assessed 04/01/25 04/01/25 08:56 Patient Tobacco Use Status Former Tobacco user 04/01/25 08:56 Tobacco use type Cigarette 04/01/25 08:56 e-Cigarette/Vaping Use Never Used 04/01/25 08:56 PHQ-9: PHQ-9 Score PHQ-9: Total score 0 04/01/25 08:56 Depression Screening Interpretation: Negative Thrive Assessment: Date of Thrive Assessment Date Thrive assessed 04/01/25 04/01/25 08:56 Currently or been in a relationship where the following occur: No concerns reported Const General: no acute distress and alert HENMT Ears: TM normal on the left, EAC's normal (left), Abnormal EAC present excessive cerumen on the right and unable to visualize TM on the right Throat: Yes posterior oropharynx normal and Yes tonsils normal (no TP congestion) Neck Neck: Yes supple and No lymphadenopathy Thyroid: Thyroid normal Resp Auscultation: clear to auscultation bilaterally, no rales and no wheezes Cardio Rate: regular rate Rhythm: regular rhythm Heart sounds: no murmurs GI Palpation (GI): Soft to palpation and nontender Auscultation: normal bowel sounds General: Yes no CVA tenderness Back/Spine/Pelvis Back: no CVA tenderness Thoracic/Lumbar Spine: No lumbar spinal tenderness Skin Rashes: no rashes Extrem General: Yes no clubbing, cyanosis or edema Coding Level of Care Code Est Pt Level 4 (57285) Diagnoses Essential hypertension I10 Elevated LFTs R79.89 Chronic GERD K21.9 Vitamin D deficiency E55.9 Chronic gout without tophus, unspecified cause, unspecified site [id number].[id number] Gout site: unspecified site Gout etiology: unspecified cause Chronicity: chronic Presence of tophus: without tophus Pancreatic cyst K86.2 Glaucoma, unspecified glaucoma type, unspecified laterality H40.9 Glaucoma type: unspecified Laterality: unspecified laterality Overweight (BMI 25.0-29.9) E66.3 Additional Codes PHQ-9 - 14125 - PHQ-9 Billing: Yes ([id number]) Assessment & Plan Assessment & Plan (1) Essential hypertension: Code(s): I10 - Essential (primary) hypertension Category: Medical Plan: Reinforced low sodium diet - goal is systolic BP of at least 130 to 140 mm or less Continue Amlodipine 10 mg QD and HCTZ 25 mg QD (2) Elevated LFTs: Code(s): R79.89 - Other specified abnormal findings of blood chemistry Category: Medical Plan: Patient's LFTs have been slightly elevated for a while now (+) hepatic steatosis is noted on his abdominal MRI done over the past couple of years (3) Chronic GERD: Code(s): K21.9 - Gastro-esophageal reflux disease without esophagitis Category: Medical Plan: Dietary restrictions reinforced Continue Omeprazole 20 mg QD (4) Vitamin D deficiency: Code(s): E55.9 - Vitamin D deficiency, unspecified Category: Medical Plan: Continue Vitamin D3 1000 units QD (5) Gout: Code(s): M10.9 - Gout, unspecified Category: Medical Qualifiers: Gout site: unspecified site Gout etiology: unspecified cause Chronicity: chronic Presence of tophus: without tophus Qualified Code(s): M1A.9XX0 - Chronic gout, unspecified, without tophus (tophi) Plan: Reinforced low purine diet Patient states that he has not had any flare ups in a while now; he takes OTC Naproxen PRN Will check his serum uric acid level in 4 months for follow up (6) Pancreatic cyst: Code(s): K86.2 - Cyst of pancreas Category: Medical Plan: Abdominal MRI last done in November 2023 revealed (+) stable pancreatic cystic lesions, 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 Follow-up pre and postcontrast MRI of abdomen with MRCP sequence every 2 years x 5 or 10 to patient reaches age of 80 are recommended by [employer] Follow up with GI (Dr. Munroe) as scheduled for continuing surveillance MRI also incidentally revealed (+) moderate hepatic steatosis as well as multiple hepatic cysts and lumbar spine degenerative disc disease (7) Glaucoma: Code(s): H40.9 - Unspecified glaucoma Category: Medical Qualifiers: Glaucoma type: unspecified Laterality: unspecified laterality Qualified Code(s): H40.9 - Unspecified glaucoma Plan: ContinueDorzolamide-timolol 22.3-6.8 mg/ml 1 drop into each eye BID Follow up with ophthalmology as scheduled (8) Overweight (BMI 25.0-29.9): Code(s): E66.3 - Overweight Category: Medical Plan: Reinforced diet; exercise and weight loss may not be practical given patient's age and multiple comorbidities Plan Follow up in 4 months - will schedule for annual PE if covered by insurance Orders: Orders TSH reflex Free T4 4 Months E78.00 - Pure hypercholesterolemia, unspecified Vitamin D 25-OH Total 4 Months E55.9 - Vitamin D deficiency, unspecified Uric Acid 4 Months M10.9 - Gout, unspecified Complete Blood Count Auto Diff 4 Months D64.9 - Anemia, unspecified Comprehensive [place]. Panel Fast 4 Months E78.00 - Pure hypercholesterolemia, unspecified Lipid Panel 4 Months E78.00 - Pure hypercholesterolemia, unspecified UA CC w/rflx Micro + Cult 4 Months R30.0 - Dysuria Vitamin B12 and Folate 4 Months E53.8 - Deficiency of other specified B group vitamins
--- OUTSIDE RECORDS SUMMARY | 2025-04-01 09:50 | XMS_ITS | Patient Health Record ---
Author Organization [facility] Address [address] [place] [address] Care Team Providers Care Dock Hand Name Role Phone Moo Alcazar MD Primary Care Provider Luciano Tran Unavailable [phone] Allergies No Known Allergies Reason For Referral No Information Medications Medication SIG (Take, Route, Frequency, Duration) Notes Start Date End Date Status Vitamin B Complex - as directed Orally Active Ocuvite Adult 50+ - as directed Orally Active Cosopt 22.3-6.8 MG/ML 1 drop into affect ed eye Ophthalmic Twice a day Active amLODIPine Besylate 10 MG 1 tablet Orally Once a day Active hydroCHLOROthiazide 25 MG 1 capsule in t he morning Orally Once a day Active Omeprazole 40 MG TAKE ONE CAPSULE BY MOUTH EVERY MORNING. for 30 Active Valentine Active Omeprazole 20 MG 1 capsule Orally Onc e a day every morning for 30 days Active Saw [place] 500 MG as directed Orally Active Vitamin D 1000 UNIT 1 tablet Orally Once a day for 30 day(s) Active Immunizations Vaccine Route Administration Date Status Comme nts Influenza Unknown 03/25/2018 Administered Social History Alcohol Screen Question Answer Notes Did you have a drink containing alcohol in the p ast year? No Points 0 Interpretation Negative Section Notes: Nonsmoker since 2010; Drinks 1 bottle of wine QD Nonsmoker since 2010; Drinks 5 liters of wine/week(a box of wine) Nonsmoker since 2010; Drinks 5 liters of wine/week as of the 2019 OV...... but he reports that he has been abstinent since that time as of the 10/2022 office visit, Nonsmoker since 2010; Drinks 5 liters of wine/week as of the 2019 OV...... but he reports that he has been abstinent since that time as of the 10/2022 office visit, Nonsmoker since 2010; Drinks 5 liters of wine/week as of the 2019 OV...... but he reports that he has been abstinent since that time as of the 10/2022 office visit, Problems Problem Type SNOMED Code ICD Code Onset Dates Problem Status W/U Status Risk Notes Problem 99626113 Epigastric pain (R10.13) Active confirmed Problem 395067562 Encounter for screening for malignant neoplasm of colon (Z12.11) Active confirmed Problem History of polyp of colon (situation) (119695156) Personal history of colonic polyps (Z86.010) Active confirmed Problem 93975963 Weight loss (R63.4) Active confirmed Problem Diverticular disease of colon (556774539) Diverticulosis of large intestine without perforation or abscess without bleeding (K57.30) Active confirmed Problem 276103809 Nausea (R11.0) Active confirmed Problem Gastroesophageal reflux disease without esophagitis (201396079) Gastroesophageal reflux disease without esophagitis (K21.9) Active confirmed Problem 382927531088659 Preprocedural examination (Z01.818) Active confirmed Problem 821801740 Family history o f colon cancer (Z80.0) Active confirmed Problem 689252669 Gallstones (K80.20) Active confirmed Problem 316351940 Hx of adenomatou s colonic polyps (Z86.010) Active confirmed Problem 205143286 Long-term use of high-risk medication (Z79.899) Active confirmed Problem 624484849 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) Active confirmed Problem 00889363894554621 Abnormal ultrasound of abdomen (R93.5) Active confirmed Problem 22133216 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) Active confirmed Encounters Encounter Location Date Provider Diagnosis [facility] [address] [place] [address] 07/25/2024 Luciano Munroe Plan Of Treatment Pending Test Test Name Order Date BUN 11/17/2022 BUN 11/22/2023 LIVER PROFILE 11/17/2022 CA 19-9 11/22/2023 CA 19-9 11/17/2022 MRI ABD NO CONTRAST (MRCP) 11/17/2022 MRI ABD W&WO CONTRAST 11/17/2022 MRI ABD W&WO CONTRAST 11/22/2023 US ABD 10/26/2022 Creatinine 11/22/2023 Creatinine 11/17/2022 Amylase 11/17/2022 Lipase 11/17/2022 Future Test Test Name Order Date COLONOSCOPY 06/19/2013 COLONOSCOPY 09/28/2018 UPPER GI ENDOSCOPY 10/26/2022 COLONOSCOPY 11/22/2023 Next Appt Details Provider Name:Luciano Munroe , 05/28/2025 09:10:00 AM, [address] [facility], [address], [place], [address], Insurance Providers Payer Name Payer Address Payer Phone Subscriber Number Group Number Insured Name Patient Relationship to Insured Coverage Start Date Coverage End Date [employer] Medicare Advantage Plan [address] [address] [place] [address] [id number] [id number] Self - patient is the insured Medical (General) History Medical History History ICD Code GERD--EGD in 11/2007--small HH-no Ipedra 's Glaucoma Tubular adenomas removed in 1999 and 11/2007; colonoscopy in 06/2013 was neg. except for hyperplastic polyps; colonoscopy 10/2018 with a small tubular adenoma removed and a hyperplastic polyp HTN Denies NE,DM,CVA,Lung disease,renal dise ase Gout 2021 Upper endoscopy [...]
== END 2025-04-01 09:51 | disposition home or self-care (01) ==
LOC: HO.HMCH 08:49
PROVIDERS: PCP Internal Medicine; Visit Provider Internal Medicine
DX: I10 Essential (primary) hypertension (principal); R79.89 Other specified abnormal findings of blood chemistry; K21.9 Gastro-esophageal reflux disease without esophagitis; E55.9 Vitamin D deficiency, unspecified; M1A.9XX0 Chronic gout, unspecified, without tophus (tophi); K86.2 Cyst of pancreas; H40.9 Unspecified glaucoma; E66.3 Overweight

== ENCOUNTER → 2025-04-01 08:48 | Outpatient (BNVA) | payer MEDICARE, SELFPAY | PROVIDERS: PCP Internal Medicine; Visit Provider Internal Medicine | DX: I10 Essential (primary) hypertension (principal); R79.89 Other specified abnormal findings of blood chemistry; K21.9 Gastro-esophageal reflux disease without esophagitis; E55.9 Vitamin D deficiency, unspecified; M1A.9XX0 Chronic gout, unspecified, without tophus (tophi); K86.2 Cyst of pancreas; E66.3 Overweight; Z68.27 Body mass index [BMI] 27.0-27.9, adult | CPT/HCPCS: 96127; 99212 ==

== ENCOUNTER 2025-07-03 08:33 | Outpatient (REF) | payer MEDICARE, SELFPAY | END 2025-07-03 08:34 | disposition home or self-care (01) | LOC: HO.LAB 08:33 | PROVIDERS: PCP Internal Medicine; Visit Provider Nurse Practitioner Family | DX: R31.0 Gross hematuria (principal); R39.9 Unspecified symptoms and signs involving the genitourinary system; R10.A0 Flank pain, unspecified side; R31.29 Other microscopic hematuria; R39.15 Urgency of urination | CPT/HCPCS: 51798; 81003; 87086; 88112; 99212 ==

== ENCOUNTER 2025-07-03 08:33 | Outpatient (AMB) | payer MEDICARE, SELFPAY ==
--- NOTE | 2025-07-03 08:34 | MHC.OFFVIS ---
Intake Visit Reasons: 6m/PVR/UA(SET) Intake Note: Patient is present for 6M/PVR/UA Urology Medication:VITAMIN B COMPLEX Antibiotic Allergy:NONE Blood Thinner:NONE TODAY'S PVR:0ML'S Carrot Harvester Required: No Allergies No Known Allergies Allergy (Verified 07/03/25 09:39) Medication List - Last Reconciled 07/03/25 by FABIOLA Blankenship- amlodipine 10 mg PO DAILY cholecalciferol (vitamin D3) (Vitamin D3) 25 mcg PO DAILY dorzolamide-timolol 22.3-6.8 mg/mL 1 drp ophthalmic (eye) BID fexofenadine ([place] Allergy) 60 mg PO BID hydrochlorothiazide 25 mg PO DAILY [id number]-lib-pzts-lut-francesco 250 mg (90 mg-160 mg) (Ocuvite Adult 50 Plus) 1 cap PO DAILY omeprazole 20 mg PO QAM vitamin B complex 1 cap PO DAILY HPI Comments Details: Toby is a very pleasant 79-year-old male patient of Dr. Alcazar. He has a past medical history of arrhythmia, GERD, peripheral vascular disease, and hypertension. He presents to the office today for a follow up of his lower urinary tract symptoms. In discussion with the patient today he reports since his last office visit here he experienced 2 episodes on separate occasions of lower urinary tract symptoms. He describes these symptoms came in waves. He states he self treated with amoxicillin that he had at home as well as [id number] Pyridium and felt initially symptoms improved however still continues to have labile lower urinary tract symptoms. He reports episodes of bilateral flank pain followed by in extreme sense of urinary urgency leading to incontinence. He also reports believing he had an episode of gross hematuria. We did discussed importance of taking medications as prescribed as well as following up with medical provider regarding these symptoms instead of self-treatment. In office urinalysis results reviewed with the patient today trace leukocytes, negative nitrates, trace microscopic hematuria. PH 5.5. We did discussed the importance of adequate hydration relation to lower urinary tract symptoms as well as overall health and well-being. We discussed obtaining CT urogram for further assessment evaluation as well as in office cystoscopy given patient experienced episode of gross hematuria. We did discussed the importance of seeking medical treatment and or calling office with any lower urinary tract symptoms. PSAs are as follows: PSA: 06/11 2.0, 04/12 1.6, 11/13 2.2, 07/16 1.7, 11/15 3.2, 01/16 1.9 Previous workup has included bladder ultrasound 07/16 noting the bladder is well distended. Bilateral ureteral jets are demonstrated. Pre void bladder volume is approximately 410 mL. Postvoid bladder volume is approximately 80 mL. The prostate volume is approximately 34 mL. He does continue to report labile lower urinary tract symptoms. PVR 0ml's. Discussed at length potential causes for lower urinary tract symptoms patient is experiencing. We discussed potential for urinary tract infection verses passage of renal calculi verses other urological conditions. Patient otherwise denies any issues or concerns at this time. BHARATHI offered however deferred. [facility] Medical History Overweight (BMI 25.0-29.9) Pancreatic cyst Vitamin D deficiency Elevated LFTs Essential hypertension Hiatal hernia Tubular adenoma Glaucoma Arrhythmia Surgical History H/O colonoscopy History of laparoscopic cholecystectomy (01/27/23) History of esophagogastroduodenoscopy (EGD) History of cataract surgery H/O rectal polypectomy History of removal of cyst Family History Father Colon cancer Mother Stroke Social History Housing: House Alcohol intake: never Patient Tobacco Use Status: Former Tobacco user Tobacco use type: Cigarette e-Cigarette/Vaping Use: Never Used Second Hand Smoke Exposure: No service: No Current occupational status: retired Cognitive needs: No Hearing needs: No Vision needs: Yes Review of Systems Const Reports as per HPI Eyes Reports no additional complaints ENT Reports no additional complaints Card Reports as per HPI Resp Reports no additional complaints GI Reports as per HPI Reports as per HPI Musc Reports as per HPI Neuro Reports no additional complaints Psych Reports no additional complaints Endo Reports no additional complaints Physical Exam Const General: cooperative, healthy appearing, comfortable, no acute distress, well developed, alert and awake Orientation/consciousness: patient oriented x3 Limitations: no limitations HEENT Head: Yes normal to inspection, Yes normocephalic and Yes atraumatic Ears: hearing grossly normal bilaterally Eyes General: appearance normal, both eyes and all related structures Neck Neck: Yes normal visual inspection and Yes trachea midline Chest Chest palpation & inspection: normal inspection of the chest Resp Effort & Inspection: normal respiratory effort and able to speak in complete sentences Cardio Rate: regular rate GI Inspection: Yes normal to inspection General: Yes no CVA tenderness Back/Spine/Pelvis Back: no CVA tenderness Skin General skin exam: no rashes or lesions noted Neuro General: patient oriented x3 Extrem General: Yes normal to inspection Psych Appearance: grossly normal and well kempt Mental Status: mental status grossly normal Speech and movement: Normal speech and movement present and Clear speech present Affect: normal affect Attitude: cooperative Thought process: Normal thought process present Thought content: Normal thought content present Insight: Fair insight present (Psych) Judgement: Fair judgement present (Psych) Office Procedures Post Void Residual Post Residual Void Post Void Residual (PVR): 0 [id number] Void Residual by ultrasound Results AMB Urinalysis, Automated UA Leukoctes 15 Inge/uL Last Edit by HILARY Bowne on 07/03/25 09:25 UA Nitrite Negative Last Edit by HILARY Bowen on 07/03/25 09:25 UA Urobilinogen 0.2 mg/dL Last Edit by HILARY Bowen on 07/03/25 09:25 UA Protein 0 mg/dL Last Edit by HILARY Bowen on 07/03/25 09:25 UA pH 5.5 Last Edit by HILARY Bowen on 07/03/25 09:25 UA Blood 10 Ortega/uL Last Edit by HILARY Bowen on 07/03/25 09:25 UA Specific [place] 1.025 Last Edit by HILARY Bowen on 07/03/25 09:25 UA Ketone Negative Last Edit by HILARY Bowen on 07/03/25 09:25 UA Bilirubin 0 mg/dL Last Edit by HILARY Bowen on 07/03/25 09:25 UA Glucose 0 mg/dL Last Edit by HILARY Bowen on 07/03/25 09:25 Results Reviewed Results Reviewed: Laboratory Last Values Urine pH (Auto) 5.5 07/03/25 09:24 Specific [place] (Auto) 1.025 07/03/25 09:24 Urine Protein (Auto) 0 mg/dL 07/03/25 09:24 Glucose (UA)(Auto) 0 mg/dL 07/03/25 09:24 Urine Ketones (Auto) Negative 07/03/25 09:24 Urine Blood (Auto) 10 Ortega/uL 07/03/25 09:24 Urine Nitrite (Auto) Negative 07/03/25 09:24 Urine Bilirubin (Auto) 0 mg/dL 07/03/25 09:24 Urine Urobilinogen (Auto) 0.2 mg/dL 07/03/25 09:24 Leukocyte Esterase (Auto) 15 Inge/uL 07/03/25 09:24 Assessment & Plan Assessment & Plan (1) Lower urinary tract symptoms: Code(s): R39.9 - Unspecified symptoms and signs involving the genitourinary system Category: Medical (2) Gross hematuria: Code(s): R31.0 - Gross hematuria Category: Medical (3) Flank pain: Code(s): R10.A0 - Flank pain, unspecified side Category: Medical Plan In office urinalysis results reviewed with the patient today will send for urine cytology as well as urine culture. PVR 0 mL Will obtain PSA for further assessment evaluation. Will obtain CT urogram for further assessment evaluation. BUN and creatinine ordered for imaging. We did discussed worsening symptoms. We did discussed potential causes of lower urinary tract symptoms he experienced and continues to experience. We did discussed potential causes of gross hematuria as well as further workup in risks and benefits of these interventions. Follow-up next available in office cystoscopy for further assessment evaluation with imaging and labs to be completed prior; or sooner with any issues, concerns, and or questions. Orders: Orders Urine Cytology Today R31.29 - Other microscopic hematuria Urine Culture Today N39.0 - Urinary tract infection, site not specified Prostate Specific Antigen Today R39.9 - Unspecified symptoms and signs involving the genitourinary system AMB Urinalysis Automated Today Z13.9 - Encounter for screening, unspecified Blood Urea Nitrogen Today R39.15 - Urgency of urination Creatinine Today R39.15 - Urgency of urination CT urogram Today R31.0 - Gross hematuria Patient Instructions: The patient had an opportunity to ask questions regarding the treatment plan. All questions were answered. Physical exam, labs, and imaging were discussed and reviewed in detail. As well as risks, benefits, and discussion of treatment choices. No major barriers to understanding were identified. The patient expressed understanding and agreement with the above treatment plan. The patient was made aware they should contact our office by phone for worsening of their current condition, the appearance of new symptoms, or with any questions or concerns. Compliance is encouraged with any medications and follow up testing that is ordered. It is a privilege to be allowed the opportunity to participate in? your urological care.? Again, if you have any questions or concerns If you have any questions or concerns please do not hesitate to contact me. The office is [phone]. This note is constructed using voice recognition software. While every effort has been made to ensure accuracy private equity analyst errors may have been included. Yours sincerely, SAMEERA Blankenship Coding Level of Care Code Est Pt Level 3 (33483) Complex visit Add On G2211 Diagnoses Lower urinary tract symptoms R39.9 Gross hematuria R31.0 Flank pain R10.A0 CPT Codes Post Residual Void - PVR CPT Code: 26222-Taow Void Residual by ultrasound ([id number])
== END 2025-07-03 09:21 | disposition home or self-care (01) ==
LOC: HO.HUSH 08:34
PROVIDERS: PCP Internal Medicine; Visit Provider Nurse Practitioner Family
DX: R39.9 Unspecified symptoms and signs involving the genitourinary system (principal); R31.0 Gross hematuria; R10.A0 Flank pain, unspecified side; Z13.9 Encounter for screening, unspecified
CPT/HCPCS: 99213; G2211